=== PATIENT | female | born 1970 | race Caucasian/White ===

== ENCOUNTER 2016-04-07 10:18 | Emergency (ER) | payer OTHER, MEDICARE ==
[~2016-04-07] VITALS: Ht 157.5 cm; Wt 63.5 kg
[~2016-04-07 10:18] MED LIST: ALBUTEROL SULFAT3 M3 IT; ATORVASTATIN CA40 MG PO; AUGMENTIN 875 M1 TAB PO; AUGMENTIN 875-1 EACH PO; CIPRO 500MG (E500 MG PO; CLOPIDOGREL75 MG PO; ENSURE PLUS; ENSURE PLUS 23237 ML PEG; ERYTHROMYCIN 2250 MG PO; FUROSEMIDE20 MG PO; LEADER ASPIRIN81 MG PO; LEVAQUIN 500MG500 MG PO; LEVAQUIN750 MG PEG; MAALOX PLUS30 ML PO; MASON NATURAL2000 IU PO; METOCLOPRAMIDE10 MG IT; NITROSTAT0.4 MG SL; ONDANSETRON HYDR4 MG PO; PANTOPRAZOLE SO40 MG PO; POLYETHYLE17 GM/Dos2 PEG; POLYTRIM EYE DR10 ML OPH; PREDNISONE20 M1 PO; PROBIOTIC & ACI1 CAP PO; SYMBICORT 160/41 PUF INH; TRIAMCINOL0.1 %/453 TOP; VITAB121000 PO; VITAMIN B COMPL1 CAP PO; VITAMIN B-150 MG PO; ZITHROMAX Z-PA250 M1 PO
--- NOTE | 2016-04-07 10:22 | ED DYSPNEA/ASTHMA COMPLAINT ---
History of Present Illness General Chief Complaint: Dyspnea (COPD, CHF, Other) Stated Complaint: BIBA DIFF BREATHING Source: patient, family, old records Exam Limitations: clinical condition Vital Signs & Intake/Output Vital Signs & Intake/Output Vital Signs Date Time Temp Pulse Resp B/P Pulse O2 O2 Flow FiO2 Ox Delivery Rate 04/07 1237 97.7 55 20 121/55 98 04/07 1057 96 Trach Mask 30% 04/07 1040 97 Trach Mask 30% 04/07 1031 98.1 60 24 114/61 93 Trach Mask 4.0L Allergies Coded Allergies: NO KNOWN ALLERGIES (11/23/15) Reconcile Medications Albuterol Sulfate 0.63 MG/3 ML VIAL.NEB 1 INH IT TID ASTHMA (Reported) Aspirin 81 MG TAB.CHEW 1 TAB PO DAILY HEART HEALTH (Reported) Atorvastatin Calcium (Lipitor) 40 MG TABLET 1 TAB PO DAILY CHOLESTEROL ( Reported) Budesonide/Formoterol Fumara (Symbicort 160-4.5 Mcg Inhaler) 160 MCG/4.5 MCG PUF 2 PUF INH BID SOB (Reported) CHOLECALCIFEROL (VITAMIN D3) (Vitamin D) 2,000 UNIT CAPSULE 1 CAP PO DAILY 0700 (Reported) CLOPIDOGREL BISULFATE (Clopidogrel) 75 MG TABLET 1 TAB PO DAILY HEART HEALTH (Reported) Cyanocobalamin (Vitamin B-12) 1,000 MCG TAB 1 TAB PO DAILY V (Reported) LACTOSE-REDUCED FOOD (Ensure Plus 237 Ml) 237 ML LIQ 300 ML PEG 4 TIMES/DAY SUPPLEMENT (Reported) METOCLOPRAMIDE HCL (Metoclopramide HCl) 10 MG TABLET 1 TAB IT AC NAUSEA ( Reported) ONDANSETRON HCL (Ondansetron Hydrochloride) 4 MG TABLET 1 TAB PO Q8 PRN NAUSEA /VOMITING (Reported) Pantoprazole Sodium 40 MG TABLET.DR 1 TAB PO DAILY GERD (Reported) Polyethylene Glycol 3350 17 GRAM/DOSE POWDER 1 PAC PEG DAILY CONSTIPATION ( Reported) Please hold for diarrhea. Thiamine (Vitamin B-1) 50 MG TAB 2 TAB PO DAILY SUPPLEMENT (Reported) Vitamin B Complex 1 EACH CAPSULE 1 TAB PO DAILY SUPPLEMENT (Reported) Triage Nurses Notes Reviewed? yes Onset: Abrupt Duration: minute(s): (30) Timing: single episode today Severity: severe Activities at Onset: none Associated Symptoms: unable to breathe HPI: This is a 46 year old female with history of trach who presents from home for chief complaint of difficulty breathing prior to arrival. Her ex tried to suction her but states that when she wasn't getting better he panicked and called 911 to take her to the hospital. Symtpoms are improved at this time. No recent illness, symptoms were abrupt this morning. He reports EMS also suctioned her with good effect. Currently she is without complaints. Past History Travel History Traveled to [place] past 21 day No Medical History Any Pertinent Medical History? 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 Hx Contributory? No Review of Systems Review of Systems Constitutional: Denies: chills, fever. EENTM: Reports: no symptoms. Respiratory: Reports: see HPI, stridor, wheezing. Cardiovascular: Denies: chest pain, palpitations. GI: Denies: abdominal pain. Genitourinary: Reports: no symptoms. Musculoskeletal: Reports: no symptoms. Skin: Reports: no symptoms. Neurological/Psychological: Reports: no symptoms. Hematologic/Endocrine: Denies: bruising, bleeding, polyuria, polydipsia. Immunologic/Allergic: Denies: splenectomy. All Other Systems: Reviewed and Negative Physical Exam Physical Exam General Appearance: well developed/nourished, alert, awake, mild distress Head: atraumatic, normal appearance Eyes: Bilateral: normal appearance, PERRL, EOMI. Ears, Nose, Throat: hearing grossly normal Neck: TRACH IN POSITION, NO STRIDOR Respiratory: decreased breath sounds, NO WHEEZING, RHONCHI OR CRACKLES Cardiovascular: regular rate/rhythm Peripheral Pulses: 2+ radial (R), 2+ radial (L) Neurologic/Psych: no motor/sensory deficits, awake, alert Skin: intact, normal color, warm/dry Core Measures ACS in differential dx? No Severe Sepsis Present: No Septic Shock Present: No Progress Differential Diagnosis: PNEUMONIA, ASPIRATION, MUCOUS PLUGGING Plan of Care: Orders Procedure Date/time Status RT ED ORDERS 04/07 1047 Complete LOWER RESPIRATORY CULTURE 04/07 1047 Active Telemetry/Cage Maker 04/07 1024 Active TROPONIN LEVEL 04/07 1024 Complete COMPREHENSIVE METABOLIC PANEL 04/07 1024 Complete CBC WITHOUT DIFFERENTIAL 04/07 1024 Complete EKG 04/07 1024 Active Laboratory Tests 04/07/16 1208: Anion Gap 10, Estimated GFR > 60, BUN/Creatinine Ratio 28.0 H, Glucose 95, Calcium 9.7, Total Bilirubin 0.6, AST 33, ALT 28, Alkaline Phosphatase 159 H, Troponin I < 0.01, Total Protein 7.3, Albumin 3.9, Globulin 3.4, Albumin/ Globulin Ratio 1.1, CBC w Diff NO MAN DIFF REQ, RBC 3.89 L, MCV 94.9, MCH 31.3 H, RDW 14.6 H, MPV 8.8, Gran % 68.7, Lymphocytes % 20.6, Monocytes % 8.6, Eosinophils % 1.2, Basophils % 0.9, Absolute Granulocytes 4.4, Absolute Lymphocytes 1.3, Absolute Monocytes 0.6, Absolute Eosinophils 0.1, Absolute Basophils 0.1, PUBS MCHC 33.0 Microbiology 04/07 104 LOWER RESP: Respiratory Culture - ORD 04/07 1046 LOWER RESP: Gram Stain - ORD Patient much improved after suctioning and nebulizer treatment. Patient hooked up to humidified oxygen. Chest x-ray is within normal limits. White blood cell count is negative. She is cleared for discharge at this time and will follow-up with her primary care doctor. (KEYANA KING,SIGRID) Diagnostic Imaging: Viewed by Me: Radiology Read. Discussed w/RAD: Radiology Read. CXR Impression: PATIENT: BAHMAN BLOUNT PRESENT AGE: 46 PATIENT ACCOUNT NO: [id number] : 69 LOCATION: [facility] ORDERING PHYSICIAN: SIGRID RIDLEY MD SERVICE DATE: 04/07/16 EXAM TYPE: RAD - XRY -PORTABLE CHEST XRAY EXAMINATION: XR PORTABLE CHEST CLINICAL INFORMATION: Dyspnea. Evaluate for pneumonia. COMPARISON: CXR from 01/28/2016. TECHNIQUE: Chest, AP view FINDINGS: Tracheostomy tube is in satisfactory position with its tip located 2.8 cm above the toño. Lungs are markedly hypoinflated and there are persistent linear, hazy opacities in the bases, consistent with atelectasis. No acute airspace opacification, pulmonary edema or pleural effusion. Cardiac silhouette is normal in size but suboptimally evaluated due to the hypoinflation and diaphragm elevation. The visualized bones are unremarkable. IMPRESSION: Hypoinflated lungs and bibasilar atelectasis, not appreciably changed compared to 01/28/2016. There are no superimposed, acute findings to raise suspicion for pneumonia. DICTATED BY: LETY WALSH MD DATE/TIME DICTATED:04/07/161121 SHOP COORDINATOR:ROGER DATE/TIME TRANSCRIBED:04/07/161121 CONFIDENTIAL, DO NOT COPY WITHOUT APPROPRIATE AUTHORIZATION. <Electronically signed in Other Vendor System> SIGNED BY: LETY WALSH MD 04/07/161128 Initial ED EKG: none Departure Departure Time of Disposition: 1308 Disposition: HOME OR SELF CARE Condition: Stable Clinical Impression Primary Impression: Mucus plugging of bronchi Referrals: JUDI KING,FANY Allison (PCP/Family) Additional Instructions: FOLLOW UP WITH YOUR DOCTOR IN THE OFFICE. RETURN NEEDED. Departure Forms: Customer Survey General Discharge Information PA/COMMERCIAL ARTIST Co-Sign Statement Statement: ED Attending supervision documentation- [] I saw and evaluated the patient. I have also reviewed all the pertinent lab results and diagnostic results. I agree with the findings and the plan of care as documented in the PA's/COMMERCIAL ARTIST's documentation. [] I have reviewed the ED Record and agree with the PA's/COMMERCIAL ARTIST's documentation. [] Additions or exceptions (if any) to the PAs/COMMERCIAL ARTIST's note and plan are summarized below: [] Resident Co-Sign Statement Statement: ED Attending supervision documentation- [] I saw and evaluated the patient. I have also reviewed all the pertinent lab results and diagnostic results. I agree with the findings and the plan of care as documented in the Resident's documentation. [] I have reviewed the ED Record and agree with the Resident's documentation. [] Additions or exceptions (if any) to the Resident's note and plan are summarized below: [] Critical Care Note Critical Care Note Critical Care Time: non-applicable
--- NOTE | 2016-04-07 11:29 | RADIOLOGY REPORT ---
EXAMINATION: XR PORTABLE CHEST CLINICAL INFORMATION: Dyspnea. Evaluate for pneumonia. COMPARISON: CXR from 01/28/2016. TECHNIQUE: Chest, AP view FINDINGS: Tracheostomy tube is in satisfactory position with its tip located 2.8 cm above the toño. Lungs are markedly hypoinflated and there are persistent linear, hazy opacities in the bases, consistent with atelectasis. No acute airspace opacification, pulmonary edema or pleural effusion. Cardiac silhouette is normal in size but suboptimally evaluated due to the hypoinflation and diaphragm elevation. The visualized bones are unremarkable. IMPRESSION: Hypoinflated lungs and bibasilar atelectasis, not appreciably changed compared to 01/28/2016. There are no superimposed, acute findings to raise suspicion for pneumonia.
[2016-04-07 12:20] LABS: ABSOLUTE BASOPHIL COUNT 0.1 /CUMM (0.0-0.2); ABSOLUTE EOSINOPHIL COUNT 0.1 /CUMM (0.0-0.7); ABSOLUTE GRANULOCYTE CT 4.4 /CUMM (1.4-6.5); ABSOLUTE LYMPH COUNT 1.3 /CUMM (1.2-3.4); ABSOLUTE MONOCYTE COUNT 0.6 /CUMM (0.10-0.60); BASOPHIL % 0.9 % (0.0-2.0); EOSINOPHIL % 1.2 % (0-5); GRANULOCYTE % 68.7 % (42.2-75.2); HEMATOCRIT 36.9 % (37-47); MEAN CORPUSCULAR HGB 31.3 PG (27.0-31.0); MEAN CORPUSCULAR VOLUME 94.9 FL (81.0-99.0); MEAN PLATELET VOLUME 8.8 FL (7.4-10.4); PLATELET COUNT 189 /CUMM (130-400); RBC DISTRIBUTION WIDTH 14.6 % (11.5-14.5); RED BLOOD CELL CT 3.89 /CUMM (4.20-5.40); WHITE BLOOD CELL COUNT 6.4 /CUMM (4.8-10.8)
[2016-04-07 12:37] VITALS: BP 121/55
== END 2016-04-07 13:29 ==
LOC: ERH 10:18
PROVIDERS: Emergency Medicine
DX: T17.900A Unspecified foreign body in respiratory tract, part unspecified causing asphyxiation, initial encounter (principal)
CPT/HCPCS: 1263; 1342; 87070; 93005; 93010

== ENCOUNTER 2016-06-08 16:26 | Emergency (ER) | payer OTHER, MEDICARE ==
--- NOTE | 2016-06-08 18:14 | ED GENERAL ADULT ---
History of Present Illness General Chief Complaint: General Adult Stated Complaint: PEG TUBE PLACED Source: patient Exam Limitations: no limitations Vital Signs & Intake/Output Vital Signs & Intake/Output Vital Signs Date Time Temp Pulse Resp B/P Pulse O2 O2 Flow FiO2 Ox Delivery Rate 06/09 1847 Trach Mask 4.0L 06/08 184 97.6 55 16 122/59 99 Trach Mask 4.0L 06/08 1712 98.6 56 15 106/70 99 Room Air Allergies Coded Allergies: NO KNOWN ALLERGIES (11/23/15) Reconcile Medications Albuterol Sulfate 0.63 MG/3 ML VIAL.NEB 1 Vial INH/NURIS QAM RESPIRATORY ( Reported) Aspirin (Ecotrin*) 81 MG TABLET.DR 1 TAB AD DAILY HEART/BLOOD (Reported) Atorvastatin Calcium (Lipitor) 40 MG TABLET 1 TAB AD DAILY CHOLESTEROL ( Reported) Budesonide/Formoterol Fumarate (Symbicort 160-4.5 Mcg Inhaler) 160 MCG-4.5 MCG/ ACTUATION HFA.AER.AD 2 PUF INH BID RESPIRATORY (Reported) Cholecalciferol (Vitamin D3) (Vitamin D) 2,000 UNIT CAPSULE 1 CAP AD DAILY SUPPLEMENT (Reported) Clopidogrel Bisulfate (Clopidogrel) 75 MG TABLET 1 TAB AD DAILY BLOOD THINNER (Reported) Cyanocobalamin (Vitamin B-12) 1,000 MCG TABLET 1 TAB AD DAILY SUPPLEMENT ( Reported) Lactose-Reduced Food (Ensure Plus) 0.05 GRAM-1.5 KCAL/ML LIQUID 300 ML PEG 4 TIMES/DAY SUPPLEMENT (Reported) Metoclopramide HCl (Reglan) 10 MG TABLET 1 TAB PEG TIDAC GI (Reported) 30 minutes before meals and bedtime Nitroglycerin 0.4 MG TAB.SUBL 1 TAB SL AD PRN CHEST PAIN (Reported) 1st sign of attack; may repeat every 5 minutes until relief; if pain persists after 3 tablets in 15 minutes, prompt medical att Ondansetron HCl 4 MG TABLET 1 TAB PEG Q4P PRN N/V (Reported) Pantoprazole Sodium 40 MG TABLET.DR 1 TAB AD DAILY GI (Reported) Polyethylene Glycol 3350 17 GRAM POWD.PACK 1 PAC PEG DAILY GI (Reported) Polytrim (Polytrim Eye Drops) 10,000 UNIT-1 MG/ML DROPS 1 GTT OPH Q6 conjunctivitis Thiamine HCl (B-1) 100 MG TABLET 1 TAB AD DAILY SUPPLEMENT (Reported) Vitamin B Complex (Super B-50 Complex Plus) 1 EACH TABLET 1 TAB AD DAILY SUPPLEMENT (Reported) Triage Note: PT TO ED FOR DISLODGED PEG TUBE, REPORTING SHE WAS ABOUT TO GET DINNER AND NOTICED THE PEG TUBE WAS OUT. Triage Nurses Notes Reviewed? yes Onset: Abrupt Duration: day(s): (1), constant Timing: recent history Injury Environment: home Severity: mild Severity Numbers: 3 No Modifying Factors: none Associated Symptoms: denies HPI: 46-year-old female presents with her for evaluation after he states her PEG tube fell out just prior to arrival. The patient is been in her normal state of health without any complaints no fever no chills no nausea no vomiting no cough. Her states that there has been leakage around the PEG tube for the past 1 week. This tube was placed in November by Dr. Bansal. They deny noting any rashes or skin there are no modifying factors or associated symptoms otherwise (DAVID NOBLE) Past History Travel History Traveled to [place] past 21 day No Medical History Any Pertinent Medical History? 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 Hx Contributory? No (DAVID NOBLE) Review of Systems Review of Systems Constitutional: Reports: see HPI. All Other Systems: Reviewed and Negative Comments Review of systems: See HPI, All other systems negative. Constitutional, no chills no fever, no malaise HEENT: No visual changes no sore throat no congestion Cardiovascular: No chest pain , no palpitation Skin, no jaundice no rashes, no change in skin Respiratory: No dyspnea no cough no sputum GI: No nausea no vomiting, : No dysuria Muscle skeletal: No joint pain, no back pain, no neck pain, Neurologic: No numbness no headache Psych: No stress Heme/endocrine: No bruising no bleeding Immunology: No lymphadenopathy (DAVID NOBLE) Physical Exam Physical Exam General Appearance: well developed/nourished, alert, awake Comments: Well-developed well-nourished person in no acute distress HEENT: Normal EENT exam; PERRL, EOMI, . HEAD is atraumatic. moist mucous membranes. Neck: Supple,normal range of motion Back: Nontender, no CVA tenderness. Full range of motion Cardiovascular: Regular rate and rhythms no murmurs rubs Respiratory: Patient speaking in full complete sentences. Breath sounds clear to auscultation bilaterally: NO W/R/R Abdomen: Soft, nontender nondistended, no appreciable organomegaly. Normal bowel sounds. No rebound/guarding, Extremity: No edema, full range of motion of extremities Neuro: Alert oriented x3, motor sensory normal, There were no obvious focal neurologic abnormalities. Skin: No appreciable rash on exposed skin, skin is warm and dry. Psych: Mood and affect is normal, memory and judgment is normal. Core Measures ACS in differential dx? No CVA/TIA Diagnosis: No Severe Sepsis Present: No Septic Shock Present: No (DAVID NOBLE) Progress Differential Diagnoses I considered the following diagnoses in my evaluation of the patient: peg tube replacmeent Plan of Care: Case was discussed with Dr. Jackson 18 [place] temporary Hunt was placed successfully by myself, discussed the patient's need for close follow-up with Dr. Bansal, or IR tomorrow for permanent PEG. They feel comfortable with plan Initial ED EKG: none (DAVID NOBLE) Departure Departure Time of Disposition: 1834 Disposition: HOME OR SELF CARE Condition: Stable Clinical Impression Primary Impression: S/P percutaneous endoscopic gastrostomy (PEG) tube placement Referrals: FANY LAU MD (PCP/Family) LAKIA BANSAL MD Additional Instructions: Follow-up with your call center agent Dr. Bansal tomorrow. Return to emergency room anytime sooner with any concerns Departure Forms: Customer Survey General Discharge Information Prescriptions: Current Visit Scripts Polytrim (Polytrim Eye Drops) 1 GTT OPH Q6 #10 ML (DAVID NOBLE) PA/FRUIT FARMER Co-Sign Statement Statement: ED Attending supervision documentation- [] I saw and evaluated the patient. I have also reviewed all the pertinent lab results and diagnostic results. I agree with the findings and the plan of care as documented in the PA's/FRUIT FARMER's documentation. [x] I have reviewed the ED Record and agree with the PA's/FRUIT FARMER's documentation. [] Additions or exceptions (if any) to the PAs/FRUIT FARMER's note and plan are summarized below: [] (LUDWIG KING,JORDANA Flores) Critical Care Note Critical Care Note Critical Care Time: non-applicable (DAVID NOBLE)
[2016-06-08] MEDS ORDERED: POLYTRIM EYE DR10 ML OPH (18:37)
[2016-06-08 18:46] VITALS: BP 122/59
[2016-06-08] MEDS ORDERED: SYMBICORT 16010.2 GM INH (18:46)
[2016-06-08] MEDS ORDERED: ALBUTEROL0.63 MG/1 INH/SOL (18:46)
[2016-06-08] MEDS ORDERED: POLYETHYLENE GL17 GM PEG (18:47)
[2016-06-08] MEDS ORDERED: ONDANSETRON HCL4 MG PEG (18:48)
[2016-06-08] MEDS ORDERED: NITROGLYCERIN0.4 M1 SL (18:49)
[2016-06-08] MEDS ORDERED: PANTOPRAZOLE SO40 M1 AD (18:53)
[2016-06-08] MEDS ORDERED: REGLAN10 M1 PEG (18:53)
[2016-06-08] MEDS ORDERED: CLOPIDOGREL75 M1 AD (18:53)
[2016-06-08] MEDS ORDERED: ASPIRIN EC81 M1 AD (18:54)
[2016-06-08] MEDS ORDERED: LIPITOR40 M1 AD (18:54)
[2016-06-08] MEDS ORDERED: B-1100 MG AD (18:55)
[2016-06-08] MEDS ORDERED: VITAMIN B-121000 MC3 AD (18:58)
[2016-06-08] MEDS ORDERED: SUPER B-50 COM1 EAC1 AD (18:58)
[2016-06-08] MEDS ORDERED: VITAMIN D2000 UNIT AD (18:59)
[2016-06-08] MEDS ORDERED: ENSURE PLUS237 ML PEG (18:59)
== END 2016-06-08 19:01 ==
LOC: ERH 16:26
DX: Z43.1 Encounter for attention to gastrostomy (principal)

== ENCOUNTER 2016-07-18 18:40 | Emergency (ER) | payer OTHER, MEDICARE ==
[~2016-07-18 18:40] MED LIST changes: +ALBUTEROL0.63 MG/1 INH/SOL; +ASPIRIN EC81 M1 AD; +B-1100 MG AD; +CLOPIDOGREL75 M1 AD; +ENSURE PLUS237 ML PEG; +LIPITOR40 M1 AD; +NITROGLYCERIN0.4 M1 SL; +ONDANSETRON HCL4 MG PEG; +PANTOPRAZOLE SO40 M1 AD; +POLYETHYLENE GL17 GM PEG; +REGLAN10 M1 PEG; +SUPER B-50 COM1 EAC1 AD; +SYMBICORT 16010.2 GM INH; +VITAMIN B-121000 MC3 AD; +VITAMIN D2000 UNIT AD
--- NOTE | 2016-07-18 19:13 | ED DYSPNEA/ASTHMA COMPLAINT ---
History of Present Illness General Chief Complaint: General Adult Stated Complaint: REQUEST TO CHANGE TRACHEOSTOMY TUBE Source: patient, family Exam Limitations: no limitations Vital Signs & Intake/Output Vital Signs & Intake/Output Vital Signs Date Time Temp Pulse Resp B/P B/P Pulse O2 O2 Flow FiO2 Mean Ox Delivery Rate 07/18 2122 98.4 66 18 126/64 95 Trach Mask 07/18 2024 21 07/18 1934 Trach Mask 07/18 1842 98.5 52 18 125/64 93 Trach Mask 4.0L ED Intake and Output 07/19 0000 07/18 1200 Intake Total 0 Output Total Balance 0 Intake, Oral 0 Allergies Coded Allergies: NO KNOWN ALLERGIES (11/23/15) Reconcile Medications Albuterol Sulfate 0.63 MG/3 ML VIAL.NEB 1 Vial INH/NURIS QAM RESPIRATORY ( Reported) Aspirin (Ecotrin*) 81 MG TABLET.DR 1 TAB AD DAILY HEART/BLOOD (Reported) Atorvastatin Calcium (Lipitor) 40 MG TABLET 1 TAB AD DAILY CHOLESTEROL ( Reported) Budesonide/Formoterol Fumarate (Symbicort 160-4.5 Mcg Inhaler) 160 MCG-4.5 MCG/ ACTUATION HFA.AER.AD 2 PUF INH BID RESPIRATORY (Reported) Cholecalciferol (Vitamin D3) (Vitamin D) 2,000 UNIT CAPSULE 1 CAP AD DAILY SUPPLEMENT (Reported) Clopidogrel Bisulfate (Clopidogrel) 75 MG TABLET 1 TAB AD DAILY BLOOD THINNER (Reported) Cyanocobalamin (Vitamin B-12) 1,000 MCG TABLET 1 TAB AD DAILY SUPPLEMENT ( Reported) Lactose-Reduced Food (Ensure Plus) 0.05 GRAM-1.5 KCAL/ML LIQUID 300 ML PEG 4 TIMES/DAY SUPPLEMENT (Reported) Metoclopramide HCl (Reglan) 10 MG TABLET 1 TAB PEG TIDAC GI (Reported) 30 minutes before meals and bedtime Nitroglycerin 0.4 MG TAB.SUBL 1 TAB SL AD PRN CHEST PAIN (Reported) 1st sign of attack; may repeat every 5 minutes until relief; if pain persists after 3 tablets in 15 minutes, prompt medical att Ondansetron HCl 4 MG TABLET 1 TAB PEG Q4P PRN N/V (Reported) Pantoprazole Sodium 40 MG TABLET.DR 1 TAB AD DAILY GI (Reported) Polyethylene Glycol 3350 17 GRAM POWD.PACK 1 PAC PEG DAILY GI (Reported) Polytrim (Polytrim Eye Drops) 10,000 UNIT-1 MG/ML DROPS 1 GTT OPH Q6 conjunctivitis Polytrim (Polytrim Eye Drops) 10,000 UNIT-1 MG/ML DROPS 1 GTT OPH Q6 conjunctivitis Thiamine HCl (B-1) 100 MG TABLET 1 TAB AD DAILY SUPPLEMENT (Reported) Vitamin B Complex (Super B-50 Complex Plus) 1 EACH TABLET 1 TAB AD DAILY SUPPLEMENT (Reported) Triage Note: TRIAGE; PT TO ED REQUESTING TRACH CHANGE. STATES BALLOON POPPED AND IS UNABLE TO SUPPORT THE VENTILATOR COBOL PROGRAMMER. IS ON 4L 02 VIA VENT MASK CURRENTLY. SAT 93% AT THIS TIME. ALSO C/O RT EYE ?INFECTION. Triage Nurses Notes Reviewed? yes Onset: Abrupt Duration: minute(s): (few) Timing: single episode today Severity: mild, severe Activities at Onset: none HPI: 46-year-old female with history of long standing trait presents with her ex- to the ER for chief complaint of inability to put on the ventilator this evening. He states he was trying to insufflate the balloon and the air wouldn't home. Last used that last night. She is vent dependent overnight for 12 hours at a time. Past History Travel History Traveled to [place] past 21 day No Medical History Any Pertinent Medical History? 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 Hx Contributory? No Review of Systems Review of Systems Constitutional: Denies: chills, fever. EENTM: Reports: no symptoms. Respiratory: Reports: see HPI. Denies: hemoptysis, short of breath, sputum production. Cardiovascular: Denies: chest pain. GI: Denies: abdominal pain. Genitourinary: Reports: no symptoms. Musculoskeletal: Reports: no symptoms. Skin: Reports: no symptoms. Neurological/Psychological: Reports: no symptoms. Hematologic/Endocrine: Denies: bruising, bleeding, polyuria, polydipsia. Immunologic/Allergic: Denies: splenectomy. All Other Systems: Reviewed and Negative Physical Exam Physical Exam General Appearance: well developed/nourished, alert, awake, mild distress Head: atraumatic, normal appearance Eyes: Bilateral: PERRL. Neck: TRACHEOSTOMY TUBE IN PLACE Respiratory: UPPER AIRWAY TRANSMITTED SOUNDS Cardiovascular: regular rate/rhythm Peripheral Pulses: 2+ radial (R), 2+ radial (L) Gastrointestinal: normal bowel sounds, soft, non-tender Neurologic/Psych: awake, alert, oriented x 3 Skin: intact, normal color, warm/dry Core Measures ACS in differential dx? No Severe Sepsis Present: No Septic Shock Present: No Progress Differential Diagnosis: DEFLATED TRACHEOSTOMY CUFF, INABILITY TO VENTILATE OVERNIGHT Plan of Care: Orders Procedure Date/time Status VENTILATOR PARAMETERS 07/18 1944 Complete 6.0 trach changed after consultation with Dr. Richey. I was able to inflate the new cuff. We hooked her to the ventilator to make sure she was getting good tidal volumes. She'll be able to be discharged for follow-up with Dr. Carpenter. (KEYANA KING,[facility]) Initial ED EKG: none Departure Departure Time of Disposition: 2053 Disposition: HOME OR SELF CARE Condition: Stable Clinical Impression Primary Impression: Encounter for tracheostomy tube change Secondary Impressions: Conjunctivitis Referrals: DARNELL KING,SARINA LAU MD,FANY Allison (PCP/Family) Additional Instructions: Follow up with Dr. Carpenter in the office. Use the eyedrops as directed. Please return for any problems with the trach. Departure Forms: Customer Survey General Discharge Information Prescriptions: Current Visit Scripts Polytrim (Polytrim Eye Drops) 1 GTT OPH Q6 #10 ML Critical Care Note Critical Care Note Critical Care Time: non-applicable
[2016-07-18] MEDS ORDERED: POLYTRIM EYE DR10 ML OPH (20:55)
[2016-07-18 21:23] VITALS: BP 126/64
== END 2016-07-18 21:24 ==
LOC: ERH 18:40
DX: Z43.0 Encounter for attention to tracheostomy (principal); H10.9 Unspecified conjunctivitis
CPT/HCPCS: 1342

== ENCOUNTER 2016-10-01 12:10 | Observation (INO) | payer OTHER, MEDICARE ==
[~2016-10-01] VITALS: Ht 167.6 cm; Wt 85.7 kg
[~2016-10-01 12:10] MED LIST changes: +AMOXICILLIN875 M1 PO; -ASPIRIN EC81 M1 AD; +ASPIRIN EC81 M1 PEG; -B-1100 MG AD; +B-1100 MG PEG; -CLOPIDOGREL75 M1 AD; +CLOPIDOGREL75 M1 PEG; -LIPITOR40 M1 AD; +LIPITOR40 M1 PEG; -PANTOPRAZOLE SO40 M1 AD; +PANTOPRAZOLE SO40 M1 PEG; -SUPER B-50 COM1 EAC1 AD; +SUPER B-50 COM1 EAC1 PEG; -VITAMIN B-121000 MC3 AD; +VITAMIN B-121000 MC3 PEG; -VITAMIN D2000 UNIT AD; +VITAMIN D2000 UNIT PEG
--- NOTE | 2016-10-01 12:15 | ED DYSPNEA/ASTHMA COMPLAINT ---
History of Present Illness General Chief Complaint: General Adult Stated Complaint: BIBA FOR ?AIRWAY OBSTRUCTION Source: patient, family, old records, EMS Exam Limitations: clinical condition, physical impairment Vital Signs & Intake/Output Vital Signs & Intake/Output Vital Signs Date Time Temp Pulse Resp B/P B/P Pulse O2 O2 Flow FiO2 Mean Ox Delivery Rate 10/01 1651 94 Trach Mask 4.0L 10/01 1541 97.5 73 18 125/62 96 Room Air 10/01 1230 96 Trach Mask 4.0L 10/01 1215 99.2 90 22 136/69 92 Trach Mask Allergies Coded Allergies: No Known Allergies (09/28/16) Reconcile Medications Albuterol Sulfate 0.63 MG/3 ML VIAL.NEB 1 Vial INH/NURIS QAM RESPIRATORY ( Reported) Amoxicillin 875 MG TABLET 1 TAB PO BID pharyngitis Aspirin (Ecotrin*) 81 MG TABLET.DR 1 TAB PEG DAILY HEART/BLOOD (Reported) Atorvastatin Calcium (Lipitor) 40 MG TABLET 1 TAB PEG DAILY CHOLESTEROL ( Reported) Budesonide/Formoterol Fumarate (Symbicort 160-4.5 Mcg Inhaler) 160 MCG-4.5 MCG/ ACTUATION HFA.AER.AD 2 PUF INH BID RESPIRATORY (Reported) Cholecalciferol (Vitamin D3) (Vitamin D) 2,000 UNIT CAPSULE 1 CAP PEG DAILY SUPPLEMENT (Reported) Clopidogrel Bisulfate (Clopidogrel) 75 MG TABLET 1 TAB PEG DAILY BLOOD THINNER (Reported) Cyanocobalamin (Vitamin B-12) 1,000 MCG TABLET 1 TAB PEG DAILY SUPPLEMENT ( Reported) Lactose-Reduced Food (Ensure Plus) 0.05 GRAM-1.5 KCAL/ML LIQUID 300 ML PEG 4 TIMES/DAY SUPPLEMENT (Reported) Metoclopramide HCl (Reglan) 10 MG TABLET 1 TAB PEG TIDAC GI (Reported) 30 minutes before meals and bedtime Ondansetron HCl 4 MG TABLET 1 TAB PEG Q4P PRN N/V (Reported) Pantoprazole Sodium 40 MG TABLET.DR 1 TAB PEG DAILY GI (Reported) Polyethylene Glycol 3350 17 GRAM POWD.PACK 1 PAC PEG DAILY GI (Reported) Thiamine HCl (B-1) 100 MG TABLET 1 TAB PEG DAILY SUPPLEMENT (Reported) Vitamin B Complex (Super B-50 Complex Plus) 1 EACH TABLET 1 TAB PEG DAILY SUPPLEMENT (Reported) Triage Nurses Notes Reviewed? yes Onset: Abrupt Duration: day(s): Timing: recent history Severity: severe HPI: 46-year-old female brought in by ambulance after having a difficulty breathing episode at home with an episode of vomiting. She has a tracheostomy in place. Her ex- take care of her at home. He reports that she was having severe difficulty breathing. He did some deep suctioning and put her on the ventilator at home but she did not seem to be improving. She had an episode of vomiting. She has not been feeling well for the last couple days. She has a history of pneumonia. She was seen here a few days ago for pharyngitis of the throat. She was placed on amoxicillin. Denies any other associated symptoms. Past History Travel History Traveled to [place] past 21 day No Medical History Any Pertinent Medical History? 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 Hx Contributory? No Review of Systems Review of Systems Constitutional: Reports: see HPI. EENTM: Reports: see HPI. Respiratory: Reports: see HPI. Cardiovascular: Reports: no symptoms. GI: Reports: no symptoms. Genitourinary: Reports: no symptoms. Musculoskeletal: Reports: no symptoms. Skin: Reports: no symptoms. Neurological/Psychological: Reports: no symptoms. Hematologic/Endocrine: Reports: no symptoms. Immunologic/Allergic: Reports: no symptoms. All Other Systems: Reviewed and Negative Physical Exam Physical Exam General Appearance: well developed/nourished, alert, awake Head: atraumatic Eyes: Bilateral: normal appearance. Ears, Nose, Throat: normal pharynx, hearing grossly normal Neck: tracheostomy in place Respiratory: decreased breath sounds, respiratory distress (mild) Cardiovascular: regular rate/rhythm Gastrointestinal: soft Extremities: normal inspection, normal range of motion Neurologic/Psych: awake, alert, oriented x 3, normal gait, normal mood/affect Skin: intact, normal color Core Measures ACS in differential dx? Yes Severe Sepsis Present: No Septic Shock Present: No Progress Differential Diagnosis: asthma, AMI, bronchitis, costochondritis, CHF, COPD, musculoskeletal pain, pericarditis, pulmonary embolism, pneumonia, pneumothorax, rib fracture, unstable angina Plan of Care: Orders Procedure Date/time Status LOWER RESPIRATORY CULTURE 10/[address] in observation 10/01 170 Active BLOOD CULTURE 10/01 1214 Active URINALYSIS 10/01 1214 Complete TROPONIN LEVEL 10/01 1214 Complete LACTIC ACID 10/01 1214 Complete COMPREHENSIVE METABOLIC PANEL 10/01 1214 Complete CBC WITHOUT DIFFERENTIAL 10/01 1214 Complete EKG 10/01 1214 Active Laboratory Tests 10/01/16 1515: Lactic Acid Cancelled 10/01/16 1328: Urine Color YEL, Urine Clarity HAZY H, Urine pH 6.0, Ur Specific [place] 1.010, Urine Protein NEG, Urine Ketones NEG, Urine Nitrite NEG, Urine Bilirubin NEG, Urine Urobilinogen 0.2, Ur Leukocyte Esterase LARGE H, Ur Microscopic SEDIMENT EXAMINED, Urine WBC 1-3 H, Ur Epithelial Cells FEW, Urine Bacteria MANY H, Urine Hemoglobin TRACE-INTACT, Urine Glucose NEG 10/01/16 1241: Anion Gap 11, Estimated GFR > 60, BUN/Creatinine Ratio 28.0 H, Glucose 103 H, Lactic Acid 1.2, Calcium 9.6, Total Bilirubin 0.7, AST 68 H, ALT 58 H, Alkaline Phosphatase 221 H, Troponin I < 0.01, Total Protein 6.8, Albumin 3.7, Globulin 3.1, Albumin/Globulin Ratio 1.2, CBC w Diff NO MAN DIFF REQ, RBC 3.70 L, MCV 95.0, MCH 31.6 H, RDW 13.7, MPV 9.5, Gran % 74.3, Lymphocytes % 11.9 L, Monocytes % 13.3 H, Eosinophils % 0, Basophils % 0.5, Absolute Granulocytes 5.7 , Absolute Lymphocytes 0.9 L, Absolute Monocytes 1.0 H, Absolute Eosinophils 0 , Absolute Basophils 0, PUBS MCHC 33.3 Microbiology 10/01 1325 BLOOD: Blood Culture - RECD 10/01 124 BLOOD: Blood Culture - RECD Diagnostic Imaging: Viewed by Me: Radiology Read, CT Scan. Discussed w/RAD: Radiology Read, CT Scan. Radiology Impression: PATIENT: BAHMAN BLOUNT PRESENT AGE: 46 PATIENT ACCOUNT NO: [id number] : 69 LOCATION: [facility] ORDERING PHYSICIAN: VICKY KITCHEN SERVICE DATE: 10/01/16-5 EXAM TYPE : RAD - XRY-PORTABLE CHEST XRAY EXAMINATION: XR PORTABLE CHEST CLINICAL INFORMATION: Cough. Diminished breath sounds at the base of the lungs. COMPARISON: Chest radiograph 04/07/2016. TECHNIQUE: Portable frontal view of the chest was obtained. FINDINGS: Lung volumes are low and there is hilar vascular crowding. There are reticular markings at lung bases that most likely represent a manifestation of subsegmental atelectasis. Findings have remained essentially unchanged when compared to the previous examination from 04/07/2016. There is no overt consolidative disease. No pneumothorax. The cardiac silhouette and upper mediastinal contours are unremarkable. No acute osseous finding. IMPRESSION: Low lung volumes with hilar vascular crowding. Reticular markings within the lung bases most likely represent a manifestation of subsegmental atelectasis. No overt consolidative disease. Findings remain essentially unchanged when compared to 04/07/2016 examination. DICTATED BY: CHAS RAZO MD DATE/TIME DICTATED :10/01/161255 MANAGER DEMAND:ROGER DATE/TIME TRANSCRIBED:10/01/161255 CONFIDENTIAL, DO NOT COPY WITHOUT APPROPRIATE AUTHORIZATION. < Electronically signed in Other Vendor System> SIGNED BY: CHAS RAZO MD 10/01/16 1301, PATIENT: BAHMAN BLOUNT PRESENT AGE: 46 PATIENT ACCOUNT NO: [id number] : 69 LOCATION: [facility] ORDERING PHYSICIAN: VICKY KITCHEN SERVICE DATE: 10/01/16-142 EXAM TYPE: CAT - CT ABD & PELVIS W/O IV CONTRAS EXAMINATION: CT ABDOMEN AND PELVIS WITHOUT CONTRAST CLINICAL INFORMATION: Right lower quadrant abdominal pain. COMPARISON: CT scan of abdomen and pelvis 05/06/2015. TECHNIQUE: Multidetector volumetric imaging was performed from the superior aspect of the liver through the pubic symphysis. Sagittal and coronal reformatted images were obtained on the technologist's workstation. DLP: 1641.85 mGy-cm FINDINGS: LUNG BASES: Lung volumes are low and there is bibasilar subsegmental atelectasis. No pleural or pericardial effusion. LIVER, GALLBLADDER, AND BILIARY TREE: Unenhanced liver attenuation is homogeneous and there is no discrete hepatic parenchymal mass within the liver. The gallbladder is physiologically distended with a fundal diameter of 4.4 cm. This represents no substantial change when compared to prior imaging from 05/06/2015. No overt pericholecystic inflammatory changes. PANCREAS : Unremarkable. SPLEEN: Unremarkable. ADRENAL GLANDS: Unremarkable. KIDNEYS AND URETERS: There is stable appearance of a cystic lesion near the hilum of the left kidney that may represent pelviectasis or parapelvic cysts. The right kidney is unremarkable. No abnormal perinephric inflammation or collection. There is no nephrolithiasis. No worrisome mass or calcifications visualized along the expected course of the right or left ureter. BLADDER: Unremarkable. GASTROINTESTINAL TRACT: A gastrostomy tube is in place. And stomach and small bowel are unremarkable. The appendix is normal. The colon is largely decompressed. The colon is otherwise unremarkable. There is no free intraperitoneal air or fluid. No abnormal contour changes within the mesenteric or retroperitoneal fat. No abnormal perirectal or presacral inflammation. ABDOMINAL WALL: No significant hernia is appreciated. LYMPH NODES: There are no pathologically enlarged mesenteric or retroperitoneal lymph nodes. VASCULAR: Scattered calcified atheromatous plaque is visualized within the abdominal aorta. The inferior vena cava is unremarkable. PELVIC VISCERA: Unremarkable. OSSEOUS STRUCTURES: There is no acute osseous finding. No worrisome lytic or blastic osseous lesion. IMPRESSION: The diagnostic accuracy of this examination is limited due to the absence of intravenous contrast. There is no discrete finding to provide an explanation for the patient's right lower quadrant abdominal pain. There are multiple chronic findings that remain essentially unchanged when compared to the most recent CT scan of abdomen and pelvis from . For instance there are low lung volumes with bibasilar subsegmental atelectasis. There is also a stable appearance of a cystic lesion near the hilum of the left kidney that may represent pelviectasis or a parapelvic cyst. DICTATED BY: DANNI KING,CHAS Nina DATE/TIME DICTATED:10/01/161513 MANAGER DEMAND:ROGER DATE/TIME TRANSCRIBED:10/01/161513 CONFIDENTIAL, DO NOT COPY WITHOUT APPROPRIATE AUTHORIZATION. <Electronically signed in Other Vendor System> SIGNED BY: CHAS RAZO MD 10/01/16 1532 Initial ED EKG: normal intervals, normal p-waves, normal sinus rhythm, rate (81) Departure Departure Disposition: STILL A PATIENT Condition: Stable Clinical Impression Primary Impression: Aspiration into lower respiratory tract Secondary Impressions: UTI (urinary tract infection) Referrals: JUDI KING,FANY Allison (PCP/Family) Departure Forms: Customer Survey General Discharge Information Observation Note Spoke With: QASIM KING,FIGUEROA Physician Advisor Notified: RUDDY KING,TIANNA Holt Place Patient In: Non-ED OBS Care Area Rationale for Observation: My rational for observation is as follows . Patient will require repeat CBC. Repeat a chest x-ray. Dose of IV Unasyn. Airway management with respiratory. Deep suctioning. Patient would do poorly as an outpatient. Critical Care Note Critical Care Note Critical Care Time: non-applicable
--- NOTE | 2016-10-01 13:01 | RADIOLOGY REPORT ---
EXAMINATION: XR PORTABLE CHEST CLINICAL INFORMATION: Cough. Diminished breath sounds at the base of the lungs. COMPARISON: Chest radiograph 04/07/2016. TECHNIQUE: Portable frontal view of the chest was obtained. FINDINGS: Lung volumes are low and there is hilar vascular crowding. There are reticular markings at lung bases that most likely represent a manifestation of subsegmental atelectasis. Findings have remained essentially unchanged when compared to the previous examination from 04/07/2016. There is no overt consolidative disease. No pneumothorax. The cardiac silhouette and upper mediastinal contours are unremarkable. No acute osseous finding. IMPRESSION: Low lung volumes with hilar vascular crowding. Reticular markings within the lung bases most likely represent a manifestation of subsegmental atelectasis. No overt consolidative disease. Findings remain essentially unchanged when compared to 04/07/2016 examination.
[2016-10-01 13:04] LABS: ABSOLUTE BASOPHIL COUNT 0 /CUMM (0.0-0.2); ABSOLUTE EOSINOPHIL COUNT 0 /CUMM (0.0-0.7); ABSOLUTE GRANULOCYTE CT 5.7 /CUMM (1.4-6.5); ABSOLUTE LYMPH COUNT 0.9 /CUMM (1.2-3.4); BASOPHIL % 0.5 % (0.0-2.0); EOSINOPHIL % 0 % (0-5); GRANULOCYTE % 74.3 % (42.2-75.2); HEMATOCRIT 35.2 % (37-47); MEAN CORPUSCULAR HGB 31.6 PG (27.0-31.0); MEAN CORPUSCULAR HGB CONC 33.3 G/DL (33.0-37.0); MEAN PLATELET VOLUME 9.5 FL (7.4-10.4); PLATELET COUNT 163 /CUMM (130-400); RBC DISTRIBUTION WIDTH 13.7 % (11.5-14.5); WHITE BLOOD CELL COUNT 7.6 /CUMM (4.8-10.8)
--- NOTE | 2016-10-01 15:32 | CT SCAN REPORT ---
EXAMINATION: CT ABDOMEN AND PELVIS WITHOUT CONTRAST CLINICAL INFORMATION: Right lower quadrant abdominal pain. COMPARISON: CT scan of abdomen and pelvis 05/06/2015. TECHNIQUE: Multidetector volumetric imaging was performed from the superior aspect of the liver through the pubic symphysis. Sagittal and coronal reformatted images were obtained on the technologist's workstation. DLP: 1641.85 mGy-cm FINDINGS: LUNG BASES: Lung volumes are low and there is bibasilar subsegmental atelectasis. No pleural or pericardial effusion. LIVER, GALLBLADDER, AND BILIARY TREE: Unenhanced liver attenuation is homogeneous and there is no discrete hepatic parenchymal mass within the liver. The gallbladder is physiologically distended with a fundal diameter of 4.4 cm. This represents no substantial change when compared to prior imaging from 05/06/2015. No overt pericholecystic inflammatory changes. PANCREAS: Unremarkable. SPLEEN: Unremarkable. ADRENAL GLANDS: Unremarkable. KIDNEYS AND URETERS: There is stable appearance of a cystic lesion near the hilum of the left kidney that may represent pelviectasis or parapelvic cysts. The right kidney is unremarkable. No abnormal perinephric inflammation or collection. There is no nephrolithiasis. No worrisome mass or calcifications visualized along the expected course of the right or left ureter. BLADDER: Unremarkable. GASTROINTESTINAL TRACT: A gastrostomy tube is in place. And stomach and small bowel are unremarkable. The appendix is normal. The colon is largely decompressed. The colon is otherwise unremarkable. There is no free intraperitoneal air or fluid. No abnormal contour changes within the mesenteric or retroperitoneal fat. No abnormal perirectal or presacral inflammation. ABDOMINAL WALL: No significant hernia is appreciated. LYMPH NODES: There are no pathologically enlarged mesenteric or retroperitoneal lymph nodes. VASCULAR: Scattered calcified atheromatous plaque is visualized within the abdominal aorta. The inferior vena cava is unremarkable. PELVIC VISCERA: Unremarkable. OSSEOUS STRUCTURES: There is no acute osseous finding. No worrisome lytic or blastic osseous lesion. IMPRESSION: The diagnostic accuracy of this examination is limited due to the absence of intravenous contrast. There is no discrete finding to provide an explanation for the patient's right lower quadrant abdominal pain. There are multiple chronic findings that remain essentially unchanged when compared to the most recent CT scan of abdomen and pelvis from 05/06/2015. For instance there are low lung volumes with bibasilar subsegmental atelectasis. There is also a stable appearance of a cystic lesion near the hilum of the left kidney that may represent pelviectasis or a parapelvic cyst.
--- NOTE | 2016-10-01 17:44 | PN- Att Addend ---
Attending Addendum Attending Brief Note 46 y/o F with h sig for mental retardation, muscular dystrophy, and NSTEMI, legally blind from the left eye, status post tracheostomy and PEG, on tube feeds , uses nocturnal ventilatory, during the day she is on oxygen,ch resp failure, brought in by ambulance secondary to having difficulty breathing. This morning patient all of a sudden became cyanotic and hypoxic. suctioned large amount of mucus. She could not feel better after that therefore 911 was called. When ambulance came they also suctioned and large amount of mucus-looking sputum came out. Patient recently seen in the emergency room on 09/28/2016 where she was treated with amoxicillin for pharyngitis. claims and some last 4 days she is producing more sputum/mucus but it is clear. In the emergency room patient had a low-grade temp of 99 but did not have any leukocytosis. Chest x-ray showing evidence of atelectasis. CT abdomen and pelvis did not show any acute finding. Patient has a PEG tube and gets the feeding through the PEG tube. She is nothing by mouth and also gets her medications through the PEG. 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 Vital Signs Date Time Temp Pulse Resp B/P B/P Pulse O2 O2 Flow FiO2 Mean Ox Delivery Rate 10/01 1651 94 Trach Mask 4.0L 10/01 1541 97.5 73 18 125/62 96 Room Air 10/01 1230 96 Trach Mask 4.0L 10/01 1215 99.2 90 22 136/69 92 Trach Mask on exam; awake, nad. cv; s1,s2, rrr resp; decresaed bs at bases. abd; soft, nt, bs+, + PEG. ext; no edema. Laboratory Tests 10/01 10/01 1515 1328 Chemistry Lactic Acid Cancelled Urines Urine Color (YEL,AMB,STR) YEL Urine Clarity (CLEAR) HAZY H Urine pH (5.0 - 8.0) 6.0 Ur Specific [place] (1.001 - 1.035) 1.010 Urine Protein (NEG,<30 MG/DL) NEG Urine Ketones (NEG) NEG Urine Nitrite (NEG) NEG Urine Bilirubin (NEG) NEG Urine Urobilinogen (0.1 - 1.0 EU/dl) 0.2 Ur Leukocyte Esterase (NEG) LARGE H Ur Microscopic SEDIMENT EXAMINED Urine WBC (0 - 2 /HPF) 1-3 H Ur Epithelial Cells (NONE,FEW) FEW Urine Bacteria (NEG/NONE) MANY H Urine Hemoglobin (NEG) TRACE-INTACT Urine Glucose (N MG/DL) NEG 10/01 1241 Chemistry Sodium (137 - 145 mmol/L) 144 Potassium (3.5 - 5.1 mmol/L) 3.9 Chloride (98 - 107 mmol/L) 107 Carbon Dioxide (22 - 30 mmol/L) 26 Anion Gap (5 - 16) 11 BUN (7 - 17 mg/dL) 14 Creatinine (0.5 - 1.0 mg/dL) 0.5 Estimated GFR (>60 ml/min) > 60 BUN/Creatinine Ratio (7 - 25 %) 28.0 H Glucose (65 - 99 mg/dL) 103 H Lactic Acid (0.7 - 2.1 mmol/L) 1.2 Calcium (8.4 - 10.2 mg/dL) 9.6 Total Bilirubin (0.2 - 1.3 mg/dL) 0.7 AST (14 - 36 U/L) 68 H ALT (9 - 52 U/L) 58 H Alkaline Phosphatase (<127 U/L) 221 H Troponin I (< 0.11 ng/ml) < 0.01 Total Protein (6.3 - 8.2 g/dL) 6.8 Albumin (3.5 - 5.0 g/dL) 3.7 Globulin (1.9 - 4.2 gm/dL) 3.1 Albumin/Globulin Ratio (1.1 - 2.2 %) 1.2 Hematology CBC w Diff NO MAN DIFF REQ WBC (4.8 - 10.8 /CUMM) 7.6 RBC (4.20 - 5.40 /CUMM) 3.70 L Hgb (12.0 - 16.0 G/DL) 11.7 L Hct (37 - 47 %) 35.2 L MCV (81.0 - 99.0 FL) 95.0 MCH (27.0 - 31.0 PG) 31.6 H RDW (11.5 - 14.5 %) 13.7 Plt Count (130 - 400 /CUMM) 163 MPV (7.4 - 10.4 FL) 9.5 Gran % (42.2 - 75.2 %) 74.3 Lymphocytes % (20.5 - 51.1 %) 11.9 L Monocytes % (1.7 - 9.3 %) 13.3 H Eosinophils % (0 - 5 %) 0 Basophils % (0.0 - 2.0 %) 0.5 Absolute Granulocytes (1.4 - 6.5 /CUMM) 5.7 Absolute Lymphocytes (1.2 - 3.4 /CUMM) 0.9 L Absolute Monocytes (0.10 - 0.60 /CUMM) 1.0 H Absolute Eosinophils (0.0 - 0.7 /CUMM) 0 Absolute Basophils (0.0 - 0.2 /CUMM) 0 PUBS MCHC (33.0 - 37.0 G/DL) 33.3 All imaging reviewed. A/P; 46 y/o F with pmh sig for mental retardation, muscular dystrophy, and NSTEMI, legally blind from the left eye, status post tracheostomy and PEG, on tube feeds, uses nocturnal ventilatory, during the day she is on oxygen,ch resp failure will be placed on observation in ICU secondary to having worsening of her overall state and her muscular dystrophy. Patient requiring more frequent suctioning. Recently treated with antibiotics for possible pharyngitis. No clinical evidence of infection. Patient has normal white count with negative chest x-ray evidence of any pneumonia. She denies any current sore throat, no ear pain or sinus congestion. Will hold off on further antibiotics unless spikes fever or high WBC. Respiratory therapist to do suctioning more frequently. Pulmonology consult will be obtained with spike machine feeder. She will require albuterol and Mucomyst (I lonny Hilliard) through the [facility]. Please confirm and continue other home medications. Please start the patient on her tube feeds. Please obtain sputum ulcer and start the antibiotic if there is any growth. Transaminitis: Monitor,. RUQ US. DVT prophylaxis: Lovenox Full code
--- NOTE | 2016-10-01 18:33 | History & Physical ---
SAYRA KINGMARILOU 10/01/16 1833: General Information and HPI History of Present Illness: 46 year old woman with past medical history of musculodystrophy, mental retardation, tracheostomy on nocturnal ventilator, CHF, hyperlipidemia, and dysphagia s/p PEG tube brought in by ambulance for evaluation of shortness of breath with nausea and vomiting. Patient was seen in the ED on 09/28/16 for complaints of a sore throat and shortness of breath for which she was diagnosed with pharyngitis and dishcharged to home with a ten day total course of oral augmentin. Collateral information was obtained from patients whom is present during the interview. He reports that patient developed acute onset nausea with vomiting. He states that he attempted to suction the patient and aspirated large volume yellow mucous/vomitus. Patient also reportedly complained of right lower quadrant pain at home that has since resolved. She otherwise denies any headache, fever, chills, chest pain, palpitations. Allergies/Medications Allergies: Coded Allergies: No Known Allergies (09/28/16) Home Med list Albuterol Sulfate 0.63 MG/3 ML VIAL.NEB 1 Vial INH/NURIS QAM RESPIRATORY ( Reported) Aspirin (Ecotrin*) 81 MG TABLET.DR 1 TAB PEG DAILY HEART/BLOOD (Reported) Atorvastatin Calcium (Lipitor) 40 MG TABLET 1 TAB PEG DAILY CHOLESTEROL ( Reported) Budesonide/Formoterol Fumarate (Symbicort 160-4.5 Mcg Inhaler) 160 MCG-4.5 MCG/ ACTUATION HFA.AER.AD 2 PUF INH BID RESPIRATORY (Reported) Cholecalciferol (Vitamin D3) (Vitamin D) 2,000 UNIT CAPSULE 1 CAP PEG DAILY SUPPLEMENT (Reported) Cyanocobalamin (Vitamin B-12) 1,000 MCG TABLET 1 TAB PEG DAILY SUPPLEMENT ( Reported) Lactose-Reduced Food (Ensure Plus) 0.05 GRAM-1.5 KCAL/ML LIQUID 300 ML PEG 4 TIMES/DAY SUPPLEMENT (Reported) Metoclopramide HCl (Reglan) 10 MG TABLET 1 TAB PEG TIDAC GI (Reported) 30 minutes before meals and bedtime Ondansetron HCl 4 MG TABLET 1 TAB PEG Q4P PRN N/V (Reported) Pantoprazole Sodium 40 MG TABLET.DR 1 TAB PEG DAILY GI (Reported) Polyethylene Glycol 3350 17 GRAM POWD.PACK 1 PAC PEG DAILY GI (Reported) Thiamine HCl (B-1) 100 MG TABLET 1 TAB PEG DAILY SUPPLEMENT (Reported) Vitamin B Complex (Super B-50 Complex Plus) 1 EACH TABLET 1 TAB PEG DAILY SUPPLEMENT (Reported) Past History Travel History Traveled to [place] past 21 day No Medical History Neurological: NONE EENT: cataracts, LEGALLY BLIND LEFT EYE Cardiovascular: CHF, hyperlipidemia Respiratory: pneumonia, TRACH X YEARS O2 DEP AT 4L VIA TRACH Gastrointestinal: PEG TUBE ASPIRATION RISK-CAN'T SWALLOW Hepatic: NONE Renal: NONE Musculoskeletal: MUSCULAR DYSTROPHY Psychiatric: NONE Endocrine: NONE Blood Disorders: NONE Cancer(s): NONE 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 Psychosocial History Services at Home: Nursing ETOH Use: denies use Functional Ability ADLs Needs Assist: dressing, eating, toileting, bathing. Ambulation: independent (has foot drop), walker Review of Systems Review of Systems Constitutional: Reports: see HPI. Exam & Diagnostic Data Last 24 Hrs of Vital Signs/I&O Vital Signs Date Time Temp Pulse Resp B/P B/P Pulse O2 O2 Flow FiO2 Mean Ox Delivery Rate 10/01 1938 96.4 62 16 131/63 97 Room Air 10/01 1651 94 Trach Mask 4.0L 10/01 1541 97.5 73 18 125/62 96 Room Air 10/01 1230 96 Trach Mask 4.0L 10/01 1215 99.2 90 22 136/69 92 Trach Mask Intake & Output 10/01 1600 10/01 0800 10/01 0000 Intake Total Output Total 240 Balance -240 Output, Urine 240 Patient 86.183 kg Weight Weight Reported by Patient Measurement Method Physical Exam General Appearance Alert, Cooperative, No Acute Distress Skin No Rashes, No Breakdown, No Significant Lesion HEENT Atraumatic, EOMI, Mucous Membr. moist/pink Neck Supple, No JVD, Tracheostomy in place Cardiovascular Regular Rate, Normal S1, Normal S2 Lungs Clear to Auscultation, Normal Air Movement, Decrease bibasilar air flow with mild rhonchi, no crackles Abdomen Normal Bowel Sounds, Soft, No Tenderness, No Hepatospenomegaly, No Masses, PEG tube in place Neurological Cranial Nerves 3-12 NL Extremities No Clubbing, No Cyanosis, No Edema, Normal Pulses, 2+ bilateral lower extremity swelling Vascular Normal Pulses, Pulses Symmetrical Last 24 Hrs of Labs/Thong: Laboratory Tests 10/01/16 1515: Lactic Acid Cancelled 10/01/16 1328: Urine Color YEL, Urine Clarity HAZY H, Urine pH 6.0, Ur Specific [place] 1.010, Urine Protein NEG, Urine Ketones NEG, Urine Nitrite NEG, Urine Bilirubin NEG, Urine Urobilinogen 0.2, Ur Leukocyte Esterase LARGE H, Ur Microscopic SEDIMENT EXAMINED, Urine WBC 1-3 H, Ur Epithelial Cells FEW, Urine Bacteria MANY H, Urine Hemoglobin TRACE-INTACT, Urine Glucose NEG 10/01/16 1241: Anion Gap 11, Estimated GFR > 60, BUN/Creatinine Ratio 28.0 H, Glucose 103 H, Lactic Acid 1.2, Calcium 9.6, Total Bilirubin 0.7, AST 68 H, ALT 58 H, Alkaline Phosphatase 221 H, Troponin I < 0.01, Total Protein 6.8, Albumin 3.7, Globulin 3.1, Albumin/Globulin Ratio 1.2, CBC w Diff NO MAN DIFF REQ, RBC 3.70 L, MCV 95.0, MCH 31.6 H, RDW 13.7, MPV 9.5, Gran % 74.3, Lymphocytes % 11.9 L, Monocytes % 13.3 H, Eosinophils % 0, Basophils % 0.5, Absolute Granulocytes 5.7 , Absolute Lymphocytes 0.9 L, Absolute Monocytes 1.0 H, Absolute Eosinophils 0 , Absolute Basophils 0, PUBS MCHC 33.3 Microbiology 10/01 1700 LOWER RESP: Respiratory Culture - RES 10/01 1700 LOWER RESP: Gram Stain - RES 10/01 1325 BLOOD: Blood Culture - RECD 10/01 1245 BLOOD: Blood Culture - RECD Diagnostic Data EKG Results NSR HR 81 ID 204 QTc 437 CXR Results Low lung volumes Subsegmental atelectasis Assessment/Plan Assessment: 46 year old woman with multiple medical problems brought in by ambulance for evaluation of shortness of breath and new nausea with vomiting. #Pharyngitis, most likely viral #Tracheostomy, on nocturnal ventilator #History of Musculodystrophy Patient with tracheostomy recently seen in the ED on 09/28/16 and discharged to home on oral augmentin for complaints of sore throat. Patient remains afebrile without leukocytosis making any bacterial etiology of her sore throat unlikely. -ICU for nocturnal vent -Follow off antibiotics -TRC with Nebs & Mucomyst -If patient spikes temperature, start Unasyn -Continue home meds -Blood/Sputum cultures -Pulm consult in AM #Elevated liver function tests LFTs are elevated for unclear reasons. Patient was reportedly complaining of right lower quadrant abdominal pain upon initial assessment by ED staff for which a CT abdomen/pelvis was obtained that was fairly unremarkable. -RUQ US -Repeat LFTs in AM Pain Plan-Acetaminophen Diet-NPO, ensure via peg 4x daily, f/u nutrition consult DVT PPx- ALPS/Subcutaneous heparin Code Status-FULL CODE As Ranked By This Provider Problem List: 1. Pharyngitis Core Measures/Miscellaneous Acute Coronary Syndrome ACS Diagnosis: No Cerebrovascular Accident CVA/TIA Diagnosis: No Congestive Heart Failure CHF Diagnosis: No VTE (View Protocol) VTE Risk Factors: Acute medical illness, Age > 40 No Mech VTE prophylaxis d/t: No contraindications No VTE Pharm Prophylaxis d/t: No contraindications VTE Diagnosis: No VTE Type: NONE VTE Confirmed by (Test): NONE Sepsis (View Protocol) Severe Sepsis Present: No Septic Shock Septic Shock Present: No Miscellaneous Documentation Attending Case Discussed With: FIGUEROA TRIPP MD Primary Care Physician: FANY ATKINS MD Patient sees these Specialists Dr. Pauline Atkins Level of Patient Care: Critical Care (CRI) Consults Needed: Consulting Specialty: Pulmonary Disease FIGUEROA TRIPP MD 10/02/16 1046: Attending Review Statement Attending Statement Attending MD Statement: examined this patient, discuss w/resident/PA/VERIFICATION MANAGER, agreed w/resident/PA/VERIFICATION MANAGER, discussed with family, reviewed EMR data (avail), discussed with nursing, discussed with case mgmt, reviewed images, amended to note Attending Assessment/Plan: Also see my note.
--- NOTE | 2016-10-01 20:50 | ULTRASOUND REPORT ---
EXAMINATION: ABDOMINAL ULTRASOUND LIMITED CLINICAL INFORMATION: Right-sided abdominal pain. COMPARISON: Same day abdominal and pelvic CT. TECHNIQUE: Real-time imaging of the right upper quadrant abdominal viscera. FINDINGS: PANCREAS: The visualized pancreatic head and body are normal in appearance. The remainder of the pancreas is obscured from visualization by the overlying bowel gas. LIVER: The liver is of normal size and echogenicity without focal lesions nor intrahepatic biliary ductal dilation. GALLBLADDER: Normal. The gallbladder is physiologically distended without evidence of stones, sludge, polyps, wall thickening or pericholecystic fluid. COMMON BILE DUCT: Normal in caliber measuring 0.4 cm in diameter. RIGHT KIDNEY: Normal. No hydronephrosis. No renal calculi or focal parenchymal lesions. The kidney measures 8.5 cm in maximum dimension. FREE FLUID: None. IMPRESSION: Unremarkable limited right upper quadrant ultrasound.
[2016-10-01 22:21] VITALS: BP 132/90
[2016-10-02 06:51] VITALS: BP 140/50
[2016-10-02 08:35] LABS: ABSOLUTE BASOPHIL COUNT 0 /CUMM (0.0-0.2); ABSOLUTE EOSINOPHIL COUNT 0 /CUMM (0.0-0.7); ABSOLUTE GRANULOCYTE CT 4.6 /CUMM (1.4-6.5); ABSOLUTE LYMPH COUNT 1.4 /CUMM (1.2-3.4); ABSOLUTE MONOCYTE COUNT 0.9 /CUMM (0.10-0.60); BASOPHIL % 0.6 % (0.0-2.0); EOSINOPHIL % 0 % (0-5); GRANULOCYTE % 66.2 % (42.2-75.2); HEMATOCRIT 31.6 % (37-47); MEAN CORPUSCULAR HGB 31.8 PG (27.0-31.0); MEAN CORPUSCULAR HGB CONC 33.3 G/DL (33.0-37.0); MEAN CORPUSCULAR VOLUME 95.6 FL (81.0-99.0); MEAN PLATELET VOLUME 10.1 FL (7.4-10.4); PLATELET COUNT 138 /CUMM (130-400); RBC DISTRIBUTION WIDTH 13.9 % (11.5-14.5); RED BLOOD CELL CT 3.31 /CUMM (4.20-5.40); WHITE BLOOD CELL COUNT 6.9 /CUMM (4.8-10.8)
--- NOTE | 2016-10-02 14:12 | PN- Housestaff ---
BRANDEN KING,[facility] 10/02/16 1407: Subjective Follow-up For: Pharyingitis Elevated LFT's Subjective: Stable, Vitals WNL. The nurse was cleaning her up when I went to see the patient. No overnight events reported. Review of Systems Constitutional: Denies: no symptoms. EENTM: Denies: no symptoms. Cardiovascular: Denies: no symptoms. Respiratory: Denies: no symptoms. Genitourinary: Denies: no symptoms. Musculoskeletal: Denies: no symptoms. Skin: Denies: no symptoms. Neurological/Psychological: Denies: no symptoms. Objective Last 24 Hrs of Vital Signs/I&O Vital Signs Date Time Temp Pulse Resp B/P B/P Pulse O2 O2 Flow FiO2 Mean Ox Delivery Rate 10/02 1027 98 Trach Mask 35% 10/02 0950 Trach Mask 35% 10/02 0800 100 Trach Mask 4.0L 10/02 0651 97.8 50 24 140/50 100 Trach Mask 10/02 0636 4 10/02 0311 4 10/02 0002 4 10/02 0000 Ventilator 10/01 2236 4 10/01 2221 98.1 61 24 132/90 90 Trach Mask 10/01 2111 96.7 52 18 109/59 97 Room Air 10/01 2000 4 10/01 1938 96.4 62 16 131/63 97 Room Air 10/01 1651 94 Trach Mask 4.0L 10/01 1541 97.5 73 18 125/62 96 Room Air Intake & Output 10/02 1600 10/02 0800 10/02 0000 Intake Total 835 400 Output Total 300 200 100 Balance 535 -200 300 Intake, IV 0 Intake, Oral 0 Intake, Tube 474 400 Feeding Intake, Tube 361 Irrigant Number 0 2 2 Bowel Movements Output, Urine 300 200 100 Patient 189 lb 190 lb Weight Physical Exam General Appearance: Alert, Cooperative, No Acute Distress Other Physical Findings: General Appearance Alert, Cooperative, No Acute Distress Skin No Rashes, No Breakdown, No Significant Lesion HEENT Atraumatic, EOMI, Mucous Membr. moist/pink Neck Supple, No JVD, Tracheostomy in place Cardiovascular Regular Rate, Normal S1, Normal S2 Lungs Clear to Auscultation, Normal Air Movement, Decrease bibasilar air flow with mild rhonchi, no crackles Abdomen Normal Bowel Sounds, Soft, No Tenderness, No Hepatospenomegaly, No Masses, PEG tube in place Neurological Cranial Nerves 3-12 NL Extremities No Clubbing, No Cyanosis, No Edema, Normal Pulses, 2+ bilateral lower extremity swelling Vascular Normal Pulses, Pulses Symmetrical Current Medications: Current Medications Sig/Bulmaro Start time Last Medication Dose Route Stop Time Status Admin Acetaminophen 650 MG Q6P PRN 10/01 1845 AC PO Acetylcysteine 2 ML BID 10/01 2200 AC 10/02 INH 1020 Albuterol Sulfate 3 ML QAM 10/02 1000 DC INH Albuterol Sulfate 3 ML BID 10/02 1000 AC 10/02 INH 1019 Albuterol Sulfate 3 ML ONCE ONE 10/01 1630 DC 10/01 INH 10/01 1631 1622 Aspirin Buffered 81 MG DAILY 10/02 1000 AC 10/02 PO 1002 Atorvastatin Calcium 40 MG DAILY 10/01 1849 AC 10/02 PO 1001 Budesonide/ 2 PUF BID 10/01 2200 AC Formoterol Fumarate INH Cholecalciferol 2,000 IU DAILY 10/02 1000 AC 10/02 PO 1001 Cyanocobalamin 1,000 MCG DAILY 10/02 1000 AC 10/02 PO 1001 Heparin Sodium 5,000 UNIT Q8 10/01 2200 AC 10/02 (Porcine) SC 1316 Ipratropium [place] 2.5 ML ONCE ONE 10/01 1630 DC 10/01 INH 10/01 1631 1622 Metoclopramide HCl 0 .STK-MED ONE 10/01 1926 DC PO Metoclopramide HCl 10 MG TIDAC 10/01 1915 AC 10/02 PO 1316 Omeprazole 40 MG DAILY AC 10/02 0700 AC PO Ondansetron HCl 4 MG Q6P PRN 10/01 1900 AC PO Patient Medication 1 ED .STK-MED ONE 10/02 1428 [facility] Teaching [facility] 10/02 1429 Polyethylene Glycol 17 GM DAILY 10/02 1000 AC PO Thiamine HCl 100 MG DAILY 10/02 1000 AC 10/02 PO 1001 Last 24 Hrs of Lab/Thong Results Last 24 Hrs of Labs/Mics: Laboratory Tests 10/02/16 0618: Anion Gap 8, Estimated GFR > 60, BUN/Creatinine Ratio 28.0 H, Total Bilirubin 0.7, Direct Bilirubin 0.3, AST 46 H, ALT 49, Alkaline Phosphatase 209 H, Total Protein 5.9 L, Albumin 3.2 L, CBC w Diff NO MAN DIFF REQ, RBC 3.31 L, MCV 95.6, MCH 31.8 H, RDW 13.9, MPV 10.1, Gran % 66.2, Lymphocytes % 20.3 L, Monocytes % 12.9 H, Eosinophils % 0, Basophils % 0.6, Absolute Granulocytes 4.6 , Absolute Lymphocytes 1.4, Absolute Monocytes 0.9 H, Absolute Eosinophils 0, Absolute Basophils 0, PUBS MCHC 33.3 10/01/16 1515: Lactic Acid Cancelled Microbiology 10/01 1700 LOWER RESP: Respiratory Culture - RES GRAM NEGATIVE RODS 10/01 1700 LOWER RESP: Gram Stain - RES Assessment/Plan Assessment: 46 year old woman with multiple medical problems brought in by ambulance for evaluation of shortness of breath and new nausea with vomiting. #Pharyngitis, most likely viral #Tracheostomy, on nocturnal ventilator #History of Musculodystrophy Patient with tracheostomy recently seen in the ED on 09/28/16 and discharged to home on oral augmentin for complaints of sore throat. Patient remains afebrile without leukocytosis making any bacterial etiology of her sore throat unlikely. -Follow off antibiotics -TRC with Nebs & Mucomyst -If patient spikes temperature, start Unasyn -Continue home meds -Blood/Sputum cultures -Pulm consult; awaiting recommendations. #Elevated liver function tests LFTs are elevated for unclear reasons. Patient was reportedly complaining of right lower quadrant abdominal pain upon initial assessment by ED staff for which a CT abdomen/pelvis was obtained that was fairly unremarkable. -RUQ US -Repeat LFTs this morning; trending down. Pain Plan-Acetaminophen Diet-NPO, ensure via peg 4x daily, f/u nutrition consult DVT PPx- ALPS/Subcutaneous heparin Code Status-FULL CODE Problem List: 1. Pharyngitis Pain Ratin Pain Location: None Pain Goal: Remain pain free Pain Plan: None Tomorrow's Labs & Rationales: BEP(Transaminitis) Consulting Request: Consulting Specialty: Pulmonary Disease MANFRED MIRANDA MD 10/02/16 1506: Attending MD Review Statement Attending Statement Attending MD Statement: examined this patient, discuss w/resident/PA/LOSS PREVENTION LEADER, agreed w/resident/PA/LOSS PREVENTION LEADER, reviewed EMR data (avail) Attending Assessment/Plan: 46F PMH musculodystrophy, mental retardation, tracheostomy on nocturnal ventilator, CHF, hyperlipidemia, and dysphagia s/p PEG tube under observation for nausea, vomiting, dyspnea, and thickened secretions. 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 Today patient has continued thick secretions which are reportedly improved from yesterday. She appears comfortable, vitals are stable. Sputum growing GNR. Afebrile, normal WBC, labs reviewed. Plan - Continue in observation - Continue to monitor off antibiotics - Frequent suctioning - NAC and nebulizer treatments - Follow cultures and start appropriate antibiotic - Continue home medications - DVT PPx - Anticipated discharge tomorrow
[2016-10-02 15:09] VITALS: BP 130/80
--- NOTE | 2016-10-02 17:50 | Patient Discharge Instructions ---
Discharge Instructions General Discharge Information You were seen/treated for: Pharyngitis Transaminitis Aspiration Pneumonia Special Instructions: please take all medications as directed. Please follow up with Dr. Hilliard after discharge. Diet Continue normal diet: No (Patient is on tube feeds) Activity Activity Self Limited: Yes Acute Coronary Syndrome Inclusion Criteria At DC or during hospital stay patient has or had the following: ACS DIAGNOSIS No Discharge Core Measures Meds if any: Prescribed or Continued at Discharge Meds if any: NOT Prescribed or Continued at Discharge Congestive Heart Failure Inclusion Criteria At DC or during hospital stay patient has or had the following: CHF DIAGNOSIS No Discharge Core Measures Meds if any: Prescribed or Continued at Discharge Meds if any: NOT Prescribed or Continued at Discharge Cerebrovascular accident Inclusion Criteria At DC or during hospital stay patient has or had the following: CVA/TIA Diagnosis No Discharge Core Measures Meds if any: Prescribed or Continued at Discharge Meds if any: NOT Prescribed or Continued at Discharge Venous thromboembolism Inclusion Criteria VTE Diagnosis No VTE Type NONE VTE Confirmed by (Test) NONE Discharge Core Measures - Per Current guidelines, there needs to be overlap - treatment for the first 5 days of Warfarin therapy. - If discharged on Warfarin prior to 5 days of - overlap therapy, the patient will need to be - assessed for post discharge needs including - *Post discharge parental anticoagulation - *Warfarin and/or parental anticoagulation education - *Follow up date to check INR post discharge At least 5 days overlap therapy as Inpatient No Meds if any: Prescribed or Continued at Discharge Note: Overlap Therapy is Warfarin and Anticoagulant Meds if any: NOT Prescribed or Continued at Discharge
--- NOTE | 2016-10-02 18:29 | Cons- Pulmonary ---
General Information and HPI Consulting Request Date of Consult: 10/02/16 Requested By: MEd team History of Present Illness: 46 year old woman with past medical history of musculodystrophy, mental retardation, tracheostomy on nocturnal ventilator, CHF, hyperlipidemia, and dysphagia s/p PEG tube brought in by ambulance for evaluation of shortness of breath with nausea and vomiting. Patient was seen in the ED on 09/28/16 for complaints of a sore throat and shortness of breath for which she was diagnosed with pharyngitis and dishcharged to home with a ten day total course of oral augmentin. She otherwise denies any headache, fever, chills, chest pain, palpitations. Allergies/Medications Allergies: Coded Allergies: No Known Allergies (09/28/16) Home Med List: Albuterol Sulfate 0.63 MG/3 ML VIAL.NEB 1 Vial INH/NURIS QAM RESPIRATORY ( Reported) Aspirin (Ecotrin*) 81 MG TABLET.DR 1 TAB PEG DAILY HEART/BLOOD (Reported) Atorvastatin Calcium (Lipitor) 40 MG TABLET 1 TAB PEG DAILY CHOLESTEROL ( Reported) Budesonide/Formoterol Fumarate (Symbicort 160-4.5 Mcg Inhaler) 160 MCG-4.5 MCG/ ACTUATION HFA.AER.AD 2 PUF INH BID RESPIRATORY (Reported) Cholecalciferol (Vitamin D3) (Vitamin D) 2,000 UNIT CAPSULE 1 CAP PEG DAILY SUPPLEMENT (Reported) Cyanocobalamin (Vitamin B-12) 1,000 MCG TABLET 1 TAB PEG DAILY SUPPLEMENT ( Reported) Lactose-Reduced Food (Ensure Plus) 0.05 GRAM-1.5 KCAL/ML LIQUID 300 ML PEG 4 TIMES/DAY SUPPLEMENT (Reported) Metoclopramide HCl (Reglan) 10 MG TABLET 1 TAB PEG TIDAC GI (Reported) 30 minutes before meals and bedtime Ondansetron HCl 4 MG TABLET 1 TAB PEG Q4P PRN N/V (Reported) Pantoprazole Sodium 40 MG TABLET.DR 1 TAB PEG DAILY GI (Reported) Polyethylene Glycol 3350 17 GRAM POWD.PACK 1 PAC PEG DAILY GI (Reported) Thiamine HCl (B-1) 100 MG TABLET 1 TAB PEG DAILY SUPPLEMENT (Reported) Vitamin B Complex (Super B-50 Complex Plus) 1 EACH TABLET 1 TAB PEG DAILY SUPPLEMENT (Reported) Review of Systems Review of Systems Constitutional: Reports: see HPI. Past History Travel History Traveled to [place] past 21 day No Medical History Blood Transfusion Hx: Yes Neurological: NONE EENT: cataracts, LEGALLY BLIND LEFT EYE Cardiovascular: CHF, hyperlipidemia, HEART MURMUR Respiratory: pneumonia, TRACHEOSTOMY O2 DEP AT 4L VIA TRACH Gastrointestinal: PEG TUBE ASPIRATION RISK-CAN'T SWALLOW Hepatic: NONE Renal: NONE Musculoskeletal: MUSCULAR DYSTROPHY Psychiatric: NONE Endocrine: NONE Blood Disorders: NONE Cancer(s): NONE CERAMIC SAW TENDER/Reproductive: NONE Surgical History Surgical History: TRACHEOSTOMY Family History Relations & Conditions If Any: No Known Family History. Psychosocial History Services at Home: Nursing Smoking Status: Former Smoker ETOH Use: denies use Functional Ability ADLs Needs Assist: dressing, eating, toileting, bathing. Ambulation: independent (has foot drop), walker Exam & Diagnostic Data Last 24 Hrs of Vital Signs/I&O Vital Signs Date Time Temp Pulse Resp B/P B/P Pulse O2 O2 Flow FiO2 Mean Ox Delivery Rate 10/02 1712 Trach Mask 35% 10/02 1600 Trach Mask 4.0L 10/02 1509 97.8 60 22 130/80 93 10/02 1027 98 Trach Mask 35% 10/02 0950 Trach Mask 35% 10/02 0800 100 Trach Mask 4.0L 10/02 0651 97.8 50 24 140/50 100 Trach Mask 10/02 0636 4 10/02 0311 4 10/02 0002 4 10/02 0000 Ventilator 10/01 2236 4 10/01 2221 98.1 61 24 132/90 90 Trach Mask 10/01 2111 96.7 52 18 109/59 97 Room Air 10/01 2000 4 10/01 1938 96.4 62 16 131/63 97 Room Air Intake & Output 10/02 1600 10/02 0800 10/02 0000 Intake Total 835 400 Output Total 300 200 100 Balance 535 -200 300 Intake, IV 0 Intake, Oral 0 Intake, Tube 474 400 Feeding Intake, Tube 361 Irrigant Number 0 2 2 Bowel Movements Output, Urine 300 200 100 Patient 189 lb 190 lb Weight Last 48 Hrs of Labs/Thong: Laboratory Tests 10/02/16 0618: Anion Gap 8, Estimated GFR > 60, BUN/Creatinine Ratio 28.0 H, Total Bilirubin 0.7, Direct Bilirubin 0.3, AST 46 H, ALT 49, Alkaline Phosphatase 209 H, Total Protein 5.9 L, Albumin 3.2 L, CBC w Diff NO MAN DIFF REQ, RBC 3.31 L, MCV 95.6, MCH 31.8 H, RDW 13.9, MPV 10.1, Gran % 66.2, Lymphocytes % 20.3 L, Monocytes % 12.9 H, Eosinophils % 0, Basophils % 0.6, Absolute Granulocytes 4.6 , Absolute Lymphocytes 1.4, Absolute Monocytes 0.9 H, Absolute Eosinophils 0, Absolute Basophils 0, PUBS MCHC 33.3 10/01/16 1515: Lactic Acid Cancelled 10/01/16 1328: Urine Color YEL, Urine Clarity HAZY H, Urine pH 6.0, Ur Specific [place] 1.010, Urine Protein NEG, Urine Ketones NEG, Urine Nitrite NEG, Urine Bilirubin NEG, Urine Urobilinogen 0.2, Ur Leukocyte Esterase LARGE H, Ur Microscopic SEDIMENT EXAMINED, Urine WBC 1-3 H, Ur Epithelial Cells FEW, Urine Bacteria MANY H, Urine Hemoglobin TRACE-INTACT, Urine Glucose NEG 10/01/16 1241: Anion Gap 11, Estimated GFR > 60, BUN/Creatinine Ratio 28.0 H, Glucose 103 H, Lactic Acid 1.2, Calcium 9.6, Total Bilirubin 0.7, AST 68 H, ALT 58 H, Alkaline Phosphatase 221 H, Troponin I < 0.01, Total Protein 6.8, Albumin 3.7, Globulin 3.1, Albumin/Globulin Ratio 1.2, CBC w Diff NO MAN DIFF REQ, RBC 3.70 L, MCV 95.0, MCH 31.6 H, RDW 13.7, MPV 9.5, Gran % 74.3, Lymphocytes % 11.9 L, Monocytes % 13.3 H, Eosinophils % 0, Basophils % 0.5, Absolute Granulocytes 5.7 , Absolute Lymphocytes 0.9 L, Absolute Monocytes 1.0 H, Absolute Eosinophils 0 , Absolute Basophils 0, PUBS MCHC 33.3 CXR IMPRESSION: Low lung volumes with hilar vascular crowding. Reticular markings within the lung bases most likely represent a manifestation of subsegmental atelectasis. No overt consolidative disease. Findings remain essentially unchanged when compared to 04/07/2016 examination. Assessment/Plan Impression/Plan: Physical Exam General Appearance Alert, Cooperative, No Acute Distress Skin No Rashes, No Breakdown, No Significant Lesion HEENT Atraumatic, EOMI, Mucous Membr. moist/pink Neck Supple, No JVD, Tracheostomy in place Cardiovascular Regular Rate, Normal S1, Normal S2 Lungs Clear to Auscultation, Normal Air Movement, Decrease bibasilar air flow with mild rhonchi, no crackles Abdomen Normal Bowel Sounds, Soft, No Tenderness, No Hepatospenomegaly, No Masses, PEG tube in place Neurological Cranial Nerves 3-12 NL Extremities No Clubbing, No Cyanosis, No Edema, Normal Pulses, 2+ bilateral lower extremity swelling Vascular Normal Pulses, Pulses Symmetrical IMPRESSION PT with chronic resp failure on nocturnal vent with chronic trach due to muscular dystrophy with paralysed hemidiaphragm with mild MR now with Tracheobronchitis due to pseudomonas REcent vomiting now resolved Chronic lung disease Pt on peg tube feeding with vomiting upon admission with dry abd ct nil acute Altered lfts appears chronic REC COnt current agg pulm toilet ceftaz till pseudomonas is identified COnt peg tube feeding agg BOwel regimen will follow closely Cont nocturnal vent Consult Acknowledgment - Thank you for your consult request.
[2016-10-02 22:42] VITALS: BP 122/76
[2016-10-03 06:00] VITALS: BP 120/78
[2016-10-03 08:47] LABS: ABSOLUTE BASOPHIL COUNT 0 /CUMM (0.0-0.2); ABSOLUTE EOSINOPHIL COUNT 0 /CUMM (0.0-0.7); ABSOLUTE GRANULOCYTE CT 5.6 /CUMM (1.4-6.5); ABSOLUTE LYMPH COUNT 1.4 /CUMM (1.2-3.4); ABSOLUTE MONOCYTE COUNT 0.6 /CUMM (0.10-0.60); BASOPHIL % 0.6 % (0.0-2.0); EOSINOPHIL % 0.4 % (0-5); GRANULOCYTE % 73.5 % (42.2-75.2); HEMATOCRIT 35.9 % (37-47); MEAN CORPUSCULAR HGB 31.9 PG (27.0-31.0); MEAN CORPUSCULAR HGB CONC 33.5 G/DL (33.0-37.0); MEAN CORPUSCULAR VOLUME 95.4 FL (81.0-99.0); RBC DISTRIBUTION WIDTH 13.8 % (11.5-14.5); RED BLOOD CELL CT 3.77 /CUMM (4.20-5.40); WHITE BLOOD CELL COUNT 7.7 /CUMM (4.8-10.8)
[2016-10-03 10:20] LABS: PLATELET COUNT 145 /CUMM (130-400)
--- NOTE | 2016-10-03 10:25 | PN- Housestaff ---
See Addendum Subjective Follow-up For: Pneumonia Subjective: She is feeling okay this morning. She has not been choking that much here, but her is concerned that she will when she goes home. Her breathing is improving. Review of Systems Constitutional: Reports: no symptoms. EENTM: Reports: no symptoms. Cardiovascular: Reports: no symptoms. Respiratory: Reports: no symptoms. Gastrointestinal: Reports: no symptoms. Genitourinary: Reports: no symptoms. Musculoskeletal: Reports: no symptoms. Skin: Reports: no symptoms. Neurological/Psychological: Reports: no symptoms. Hematologic/Endocrine: Reports: no symptoms. Immunologic/Allergic: Reports: no symptoms. Objective Last 24 Hrs of Vital Signs/I&O Vital Signs Date Time Temp Pulse Resp B/P B/P Pulse O2 O2 Flow FiO2 Mean Ox Delivery Rate 10/03 0913 95 Trach Mask 35% 10/03 0900 4 10/03 0800 99 Trach Mask 4.0L 10/03 0600 97.8 50 18 120/78 99 Trach Mask 10/03 0556 4 10/03 0315 4 10/03 0006 4 10/03 0000 Ventilator 10/02 2242 98.1 54 18 122/76 99 Trach Mask 10/02 1712 Trach Mask 35% 10/02 1600 Trach Mask 4.0L 10/02 1509 97.8 60 22 130/80 93 Intake & Output 10/03 1600 10/03 0800 10/03 0000 Intake Total 600 Output Total 300 600 Balance -300 0 Intake, Oral 0 Intake, Tube 600 Feeding Number 1 Bowel Movements Output, Urine 300 600 Physical Exam General Appearance: Alert, Oriented X3, Cooperative, No Acute Distress Cardiovascular: Regular Rate, Normal S1, Normal S2 Lungs: heavy breath sounds bilaterally, tracheostomy on vent Abdomen: Normal Bowel Sounds, Soft Current Medications: Current Medications Sig/Bulmaro Start time Last Medication Dose Route Stop Time Status Admin Acetaminophen 650 MG Q6P PRN 10/01 1845 AC PO Acetylcysteine 2 ML BID 10/01 2200 AC 10/03 INH 0907 Albuterol Sulfate 3 ML BID 10/02 1000 AC 10/03 INH 0907 Aspirin Buffered 81 MG DAILY 10/02 1000 AC 10/03 PO 0910 Atorvastatin Calcium 40 MG DAILY 10/01 1849 AC 10/03 PO 0910 Budesonide/ 2 PUF BID 10/01 220 AC Formoterol Fumarate INH Ceftazidime 1,000 MG Q12 10/02 2200 CAN IV Ceftazidime 1,000 MG Q12 10/02 2200 DC 10/03 IV 0909 Cholecalciferol 2,000 IU DAILY 10/02 1000 AC 10/03 PO 0909 Ciprofloxacin 500 MG BID 10/03 1011 AC PO 10/07 1010 Cyanocobalamin 1,000 MCG DAILY 10/02 1000 AC 10/03 PO 0910 Heparin Sodium 5,000 UNIT Q8 10/01 2200 AC 10/03 (Porcine) SC 0700 Levofloxacin 500 MG DAILY 10/02 1645 DC PO Metoclopramide HCl 10 MG TIDAC 10/01 1915 AC 10/03 PO 0910 Omeprazole 40 MG DAILY AC 10/02 0700 AC PO Ondansetron HCl 4 MG Q6P PRN 10/01 1900 AC PO Patient Medication 1 ED .K-MED ONE 10/02 1428 [place] Teaching ED 10/02 1429 Polyethylene Glycol 17 GM DAILY PRN 10/02 1930 AC PO Polyethylene Glycol 17 GM DAILY 10/02 1000 AC PO Senna 187 MG AT BEDTIME PRN 10/02 1930 CAN PO Senna 187 MG AT BEDTIME PRN 10/02 1930 AC PO Thiamine HCl 100 MG DAILY 10/02 1000 AC 10/03 PO 0910 Last 24 Hrs of Lab/Thong Results Last 24 Hrs of Labs/Mics: Laboratory Tests 10/03/16 0740: Anion Gap 9, Estimated GFR > 60, BUN/Creatinine Ratio 35.0 H, Total Bilirubin 0.7, Direct Bilirubin 0.3, AST 58 H, ALT 53 H, Alkaline Phosphatase 237 H, Total Protein 6.5, Albumin 3.5, CBC w Diff NO MAN DIFF REQ, RBC 3.77 L, MCV 95.4, MCH 31.9 H, RDW 13.8, MPV 10.0, Gran % 73.5, Lymphocytes % 17.6 L, Monocytes % 7.9, Eosinophils % 0.4, Basophils % 0.6, Absolute Granulocytes 5.6, Absolute Lymphocytes 1.4, Absolute Monocytes 0.6, Absolute Eosinophils 0, Absolute Basophils 0, PUBS MCHC 33.5 Assessment/Plan Assessment: 46 year old woman with multiple medical problems brought in by ambulance for evaluation of shortness of breath and new nausea with vomiting. She was seen on 09/28 and discharged home on oral Augmentin but that did not work. This is likely because the pseudomonas was not sensitive to Augmentin. #Pneumonia: culture grew pseudomonas sensitive to cipro. -stop ceftazidine. Start ciprofloxacin 500 mg twice a day for 1 week -Respiratory therapy #History of Musculodystrophy, Tracheostomy, on nocturnal ventilator: Her is concerned that she will choke when she goes home. Talking to the magnetic locater, the question is how much she is choking and whether she is able to care for this at home. If not she will have to go to a [facility]. We will discuss with the family. -Continue home meds #Elevated liver function tests LFTs are elevated for unclear reasons. Abdominal ultrasound shows no acute process. Likely steatotic. -Continue to monitor Pain Plan-Acetaminophen Diet-NPO, ensure via peg 4x daily, f/u nutrition consult DVT PPx- ALPS/Subcutaneous heparin Code Status-FULL CODE Problem List: 1. PNEUMONIA 2. Muscular dystrophy 3. Tracheostomy care Pain Ratin Pain Location: no pain Pain Goal: Remain pain free Pain Plan: see a/p Tomorrow's Labs & Rationales: potential discharge today Consulting Request: Consulting Specialty: Pulmonary Disease
[2016-10-03] MEDS ORDERED: CIPRO500 M1 PO ×3 (10:36→11:58)
[2016-10-03] MEDS ORDERED: NAC600 M1 PO ×2 (11:57→11:58)
[2016-10-03] MEDS ORDERED: NYSTATIN15 G2 TOP (12:42)
--- NOTE | 2016-10-03 13:23 | PN- Pulmonary ---
Subjective HPI/Critical Care Issues: Doing well afebrile Objective Current Medications: Current Medications Sig/Bulmaro Start time Last Medication Dose Route Stop Time Status Admin Acetaminophen 650 MG Q6P PRN 10/01 1845 DCD PO Acetylcysteine 2 ML BID 10/01 2200 DCD 10/03 INH 0907 Albuterol Sulfate 3 ML BID 10/02 1000 DCD 10/03 INH 0907 Aspirin Buffered 81 MG DAILY 10/02 1000 DCD 10/03 PO 0910 Atorvastatin Calcium 40 MG DAILY 10/01 1849 DCD 10/03 PO 0910 Budesonide/ 2 PUF BID 10/01 2200 DCD Formoterol Fumarate INH Ceftazidime 1,000 MG Q12 10/02 2200 CAN IV Ceftazidime 1,000 MG Q12 10/02 2200 DC 10/03 IV 0909 Cholecalciferol 2,000 IU DAILY 10/02 1000 DCD 10/03 PO 0909 Ciprofloxacin 500 MG BID 10/03 1011 DCD 10/03 PO 10/07 1010 1209 Cyanocobalamin 1,000 MCG DAILY 10/02 1000 DCD 10/03 PO 0910 Heparin Sodium 5,000 UNIT Q8 10/01 2200 DCD 10/03 (Porcine) SC 0700 Levofloxacin 500 MG DAILY 10/02 1645 DC PO Metoclopramide HCl 10 MG TIDAC 10/01 1915 DCD 10/03 PO 1209 Omeprazole 40 MG DAILY AC 10/02 0700 DCD PO Ondansetron HCl 4 MG Q6P PRN 10/01 1900 DCD PO Patient Medication 1 ED .STK-MED ONE 10/02 1428 [place] Teaching ED 10/02 1429 Polyethylene Glycol 17 GM DAILY PRN 10/02 1930 DCD PO Polyethylene Glycol 17 GM DAILY 10/02 1000 DCD PO Senna 187 MG AT BEDTIME PRN 10/02 1930 CAN PO Senna 187 MG AT BEDTIME PRN 10/02 1930 DCD PO Thiamine HCl 100 MG DAILY 10/02 1000 DCD 10/03 PO 0910 Vital Signs & I&O Last 24 Hrs of Vitals and I&O: Vital Signs Date Time Temp Pulse Resp B/P B/P Pulse O2 O2 Flow FiO2 Mean Ox Delivery Rate 10/03 1222 Trach Mask 35% 10/03 0913 95 Trach Mask 35% 10/03 0900 4 10/03 0800 99 Trach Mask 4.0L 10/03 0600 97.8 50 18 120/78 99 Trach Mask 10/03 0556 4 10/03 0315 4 10/03 0006 4 10/03 0000 Ventilator 10/02 2242 98.1 54 18 122/76 99 Trach Mask 10/02 1712 Trach Mask 35% 10/02 1600 Trach Mask 4.0L 10/02 1509 97.8 60 22 130/80 93 Intake & Output 10/03 1600 10/03 0800 10/03 0000 Intake Total 600 Output Total 300 600 Balance -300 0 Intake, Oral 0 Intake, Tube 600 Feeding Number 1 Bowel Movements Output, Urine 300 600 Impression/Plan Impression/Plan Impression/Plan: Physical Exam General Appearance Alert, Cooperative, No Acute Distress Skin No Rashes, No Breakdown, No Significant Lesion HEENT Atraumatic, EOMI, Mucous Membr. moist/pink Neck Supple, No JVD, Tracheostomy in place Cardiovascular Regular Rate, Normal S1, Normal S2 Lungs Clear to Auscultation, Normal Air Movement, Decrease bibasilar air flow with mild rhonchi, no crackles Abdomen Normal Bowel Sounds, Soft, No Tenderness, No Hepatospenomegaly, No Masses, PEG tube in place Neurological Cranial Nerves 3-12 NL Extremities No Clubbing, No Cyanosis, No Edema, Normal Pulses, 2+ bilateral lower extremity swelling Vascular Normal Pulses, Pulses Symmetrical IMPRESSION PT with chronic resp failure on nocturnal vent with chronic trach due to muscular dystrophy with paralysed hemidiaphragm with mild MR now with Tracheobronchitis due to pseudomonas on cipro po for seven REcent vomiting now resolved Chronic lung diseasea Pt on peg tube feeding with vomiting upon admission with dry abd ct nil acute Altered lfts appears chronic REC COnt current agg pulm toilet CIpro bid COnt peg tube feeding agg BOwel regimen will follow closely Cont nocturnal vent
== END 2016-10-03 12:52 ==
LOC: ERH 12:10 → 2NA 17:00 → ERHI 17:00 → 2NA 18:50 → EDBEDREQ 20:34 → ENRESERV 20:38 → ERHI 20:38 → ENTRNSPT 21:41 → 2NA 21:52 → CMPTRNSPT 10-02 08:32 → 2NA 10-02 10:01 → ENPENDDIS 10-03 12:04 → 2NA 10-03 12:52
PROVIDERS: Internal Medicine; Internal Medicine Interventional Cardiology; Physician Assistant Medical; ADMIT Hospitalist
DX: J02.9 Acute pharyngitis, unspecified (principal); Z99.81 Dependence on supplemental oxygen; G71.0 Muscular dystrophy; F70 Mild intellectual disabilities; Z93.0 Tracheostomy status; I50.9 Heart failure, unspecified; E78.5 Hyperlipidemia, unspecified; R13.10 Dysphagia, unspecified; H54.42 Blindness, left eye, normal vision right eye; J96.10 Chronic respiratory failure, unspecified whether with hypoxia or hypercapnia; J98.6 Disorders of diaphragm; Z87.891 Personal history of nicotine dependence; I25.2 Old myocardial infarction
CPT/HCPCS: 2NASP; 74176; 81001; 82436; 87040; 87070; 93005; 93010; 96372; 96374; G0378; J0713; J1644; J3101; J3490; J7608

== ENCOUNTER 2016-10-15 16:41 | Emergency (ER) | payer OTHER, MEDICARE ==
[~2016-10-15 16:41] MED LIST changes: +CIPRO500 M1 PO; +NAC600 M1 PO; +NYSTATIN15 G2 TOP
--- NOTE | 2016-10-15 16:51 | ED CARDIAC/CP/PALPITATIONS ---
History of Present Illness General Chief Complaint: General Adult Stated Complaint: BIBA FOR CHOKING AT HOME Source: patient, EMS Exam Limitations: no limitations Vital Signs & Intake/Output Vital Signs & Intake/Output Vital Signs Date Time Temp Pulse Resp B/P B/P Pulse O2 O2 Flow FiO2 Mean Ox Delivery Rate 10/15 1957 96.7 60 16 130/60 96 Trach Mask 8L 10/15 1940 96 Trach Mask 30% 10/15 1703 2 10/15 1657 97 Ventilator 10/15 1656 97 Ventilator 2.0L 10/15 165 97.1 61 20 136/68 97 Ventilator Allergies Coded Allergies: No Known Allergies (09/28/16) Reconcile Medications Acetylcysteine (NAC) 600 MG CAPSULE 1 CAP PO BID Breathing . Albuterol Sulfate 0.63 MG/3 ML VIAL.NEB 1 Vial INH/NURIS QAM RESPIRATORY ( Reported) Aspirin (Ecotrin*) 81 MG TABLET.DR 1 TAB PEG DAILY HEART/BLOOD (Reported) Atorvastatin Calcium (Lipitor) 40 MG TABLET 1 TAB PEG DAILY CHOLESTEROL ( Reported) Azithromycin 250 MG TABLET 1 TAB PEG DAILY ANTIBIOTIC (Reported) Budesonide/Formoterol Fumarate (Symbicort 160-4.5 Mcg Inhaler) 160 MCG-4.5 MCG/ ACTUATION HFA.AER.AD 2 PUF INH BID RESPIRATORY (Reported) Cholecalciferol (Vitamin D3) (Vitamin D) 2,000 UNIT CAPSULE 1 CAP PEG DAILY SUPPLEMENT (Reported) Ciprofloxacin HCl (Cipro) 500 MG TABLET 1 TAB PO BID Pneumonia Please finish entire course of antibiotics. . Cyanocobalamin (Vitamin B-12) 1,000 MCG TABLET 1 TAB PEG DAILY SUPPLEMENT ( Reported) Lactose-Reduced Food (Ensure Plus) 0.05 GRAM-1.5 KCAL/ML LIQUID 300 ML PEG 4 TIMES/DAY SUPPLEMENT (Reported) Metoclopramide HCl (Reglan) 10 MG TABLET 1 TAB PEG TIDAC GI (Reported) 30 minutes before meals and bedtime Nystatin 100,000 UNIT/GRAM POWDER 1 MICHELLE TOP TID PRN Intertrigo Ondansetron HCl 4 MG TABLET 1 TAB PEG Q4P PRN N/V (Reported) Pantoprazole Sodium 40 MG TABLET.DR 1 TAB PEG DAILY GI (Reported) Polyethylene Glycol 3350 17 GRAM POWD.PACK 1 PAC PEG DAILY GI (Reported) Prednisone (Unknown Strength) TABLET (Unknown Dose) PEG AD STEROID TAPER ( Reported) Prednisone 10 MG TABLET 5 TAB PO ONCE BRONCHITIS 5 TABS PO X 2 DAYS 4 TABS X 2 DAYS 3 TABS PO X 2 DAYS 2 TABS po X 2 DAYS 1 TAB po X 2 DAYS Thiamine HCl (B-1) 100 MG TABLET 1 TAB PEG DAILY SUPPLEMENT (Reported) Vitamin B Complex (Super B-50 Complex Plus) 1 EACH TABLET 1 TAB PEG DAILY SUPPLEMENT (Reported) Triage Nurses Notes Reviewed? yes Onset: Abrupt Duration: day(s): (1), continues in ED Timing: single episode today Quality/Severity: moderate, aching, sharp Location: substernal Radiation: no radiation Activities at Onset: CHOKING Prior Chest Pain/Card Workup: no prior chest pain Modifying Factors: Worsens With: palpation. Nitro Today/Relief: no nitro taken today Aspirin Today: no aspirin today Associated Symptoms: shortness of breath LMP (ages 10-50): unknown : No Patient currently breastfeeds: No HPI: 46-year-old female with a past medical history of muscular dystrophy, CHF, and pneumonia presents for evaluation of an episode of choking shortness of breath and chest pain. Patient is on a ventilator at night and as needed due to muscular dystrophy. Earlier today before she was given be fed through a PEG tube she began feeling short of breath and feeling as though she was choking. She was placed on the ventilator and suctioned and felt improvement. She reports that over the past few weeks she has had multiple similar episodes. Subsequent was also associated with sharp chest pain in the center of her chest. Pain is worse with touching the area. Currently patient reports that she is not having any problems with her breathing she only has the pain in her chest. She rates the pain as a 4 out of 10. Does not radiate. She's not taken any medicine for the pain. No other associated symptoms. She does have a history of pneumonia. She reports that she has also been having various upper respiratory symptoms including congestion and cough and rhinorrhea. She is unsure if she is currently being treated with antibiotics and steroids. (JAH WHITNEY,JUAN ALBERTO) Past History Travel History Traveled to [place] past 21 day No Medical History Any Pertinent Medical History? 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 Hx Contributory? No (JAH WHITNEY,JUAN ALBERTO) Review of Systems Review of Systems Constitutional: Reports: no symptoms. EENTM: Reports: no symptoms. Respiratory: Reports: see HPI (choking), short of breath, sputum production. Cardiovascular: Reports: see HPI, chest pain. GI: Reports: no symptoms. Genitourinary: Reports: no symptoms. Musculoskeletal: Reports: no symptoms. Skin: Reports: no symptoms. Neurological/Psychological: Reports: no symptoms. Hematologic/Endocrine: Reports: no symptoms. Immunologic/Allergic: Reports: no symptoms. All Other Systems: Reviewed and Negative (JAH WHITNEY,JUAN ALBERTO) Physical Exam Physical Exam General Appearance: well developed/nourished, no apparent distress, alert, awake , comfortable Head: atraumatic, normal appearance Eyes: Bilateral: normal appearance, PERRL, EOMI. Ears, Nose, Throat: normal pharynx, normal ENT inspection, hearing grossly normal Neck: normal inspection, supple, full range of motion Respiratory: chest non-tender, no respiratory distress, rhonchi, wheezing Cardiovascular: regular rate/rhythm, normal peripheral pulses Peripheral Pulses: 2+ radial (R), 2+ radial (L) Gastrointestinal: normal bowel sounds, soft, non-tender Back: normal inspection, normal range of motion, no vertebral tenderness Extremities: normal inspection, normal capillary refill, normal range of motion, no edema Neurologic/Psych: no motor/sensory deficits, awake, alert, oriented x 3, normal gait, normal mood/affect Reflexes: 2+: knee (R), knee (L). Skin: intact, normal color, warm/dry Lymphatic: no anterior cervical rah Core Measures ACS in differential dx? No Severe Sepsis Present: No Septic Shock Present: No (JAH WHITNEY,JUAN ALBERTO) Progress Differential Diagnosis: AMI, aortic dissection, CHF/pulm edema, costochondritis, musculoskeletal pain, pericarditis, pneumonia, pneumothorax, pulmonary embolism, respiratory failure, unstable angina Plan of Care: Orders Procedure Date/time Status EKG 10/15 165 Active URINALYSIS 10/15 1648 Complete TROPONIN LEVEL 10/15 1648 Complete LACTIC ACID 10/15 1648 Complete COMPREHENSIVE METABOLIC PANEL 10/15 1648 Complete CBC WITHOUT DIFFERENTIAL 10/15 1648 Complete B-TYPE NATRIURETIC PEP (BNP) 10/15 1648 Complete Laboratory Tests 10/15/16 194: Lactic Acid Cancelled 10/15/16 1850: Urinalysis MANY H, Urine Color YEL, Urine Clarity HAZY H, Urine pH 7.5, Ur Specific [place] 1.010, Urine Protein NEG, Urine Ketones NEG, Urine Nitrite NEG, Urine Bilirubin NEG, Urine Urobilinogen 0.2, Ur Leukocyte Esterase NEG, Ur Microscopic SEDIMENT EXAMINED, Urine RBC RARE, Urine WBC RARE, Ur Epithelial Cells FEW, Urine Bacteria RARE H, Urine Mucus RARE, Urine Hemoglobin NEG, Urine Glucose NEG 10/15/16 1801: Anion Gap 8, Estimated GFR > 60, BUN/Creatinine Ratio 32.0 H, Glucose 112 H, Lactic Acid 1.3, Calcium 9.9, Total Bilirubin 0.8, AST 28, ALT 43, Alkaline Phosphatase 151 H, Troponin I < 0.01, Glg-J-Pqinjrssojr Pept 145 H, Total Protein 6.6, Albumin 3.8, Globulin 2.8, Albumin/Globulin Ratio 1.4, CBC w Diff NO MAN DIFF REQ, RBC 3.99 L, MCV 95.6, MCH 31.5 H, RDW 14.1, MPV 8.6, Gran % 89.6 H, Lymphocytes % 7.7 L, Monocytes % 2.7, Eosinophils % 0, Basophils % 0 L, Absolute Granulocytes 8.7 H, Absolute Lymphocytes 0.7 L, Absolute Monocytes 0.3, Absolute Eosinophils 0, Absolute Basophils 0, PUBS MCHC 32.9 L Microbiology 10/15 170 LOWER RESP: Respiratory Culture - CAN Cancelled: Cancelled via OE: Error 10/15 1701 LOWER RESP: Gram Stain - CAN Cancelled: Cancelled via OE: Error Patient seen and evaluated. She is currently on the ventilator. She is reporting some substernal chest pain. There is diffuse rhonchi and wheezing also stated bilaterally. Her chest wall is tender to palpation. Pain is reproducible with range of motion of the upper extremities. She'll be given a albuterol nebulizer treatment. Check EKG chest x-ray and basic blood work. We' ll follow up on results. Spoke with patient's caregiver. He reports that patient is currently on 40 mg of prednisone and Z-Luca. This was given by [facility]. Patient was seen at [facility] for the same exact situation and discharge last Wednesday. She was also seen here [facility] previously to the [facility] admission for the same thing. She has been choking more frequently likely related to mucous plugging. All of her blood work is coming back within normal limits. Chest x- ray is clear. Patient will be discharged home with an extended dose of prednisone and instructions to follow-up with her procurement specialist as soon as possible. Reviewed all results of today's visit with patient. Patient is nontoxic-appearing agrees the plan. Case discussed with Dr. Jackson he agrees the plan. (JUAN ALBERTO TYSON PA-C) Diagnostic Imaging: Viewed by Me: Radiology Read. Discussed w/RAD: Radiology Read. CXR Impression: PATIENT: BAHMAN BLOUNT PRESENT AGE: 46 PATIENT ACCOUNT NO: [id number] : 69 LOCATION: [facility], [place] ORDERING PHYSICIAN: JUAN ALBERTO TYSON PA-C SERVICE DATE: 10/15/16 EXAM TYPE: RAD - XRY- PORTABLE CHEST XRAY EXAMINATION: XR PORTABLE CHEST CLINICAL INFORMATION: Cough, shortness of breath COMPARISON: Chest x-ray 10/01/[address] abdomen pelvis 10/01. CT chest 02/18/2016 TECHNIQUE: Portable frontal view of the chest was obtained. 5:06 PM FINDINGS: Tracheostomy catheter in place. Lung volume low. Asymmetric elevation of the right diaphragm. Linear atelectasis at left lung base. No pulmonary vascular congestion. No acute infiltrate. No pleural effusion. IMPRESSION: No acute abnormality of chest. DICTATED BY: EMMA POLLARD MD DATE/TIME DICTATED:10/15/161728 [employer] DEL[employer] SYSTEM:ROGER DATE/TIME TRANSCRIBED:10/15/161728 Initial ED EKG: SINUS RHYTHM, LEFT VENTRICULAR HYPERTROPHY, CONSIDER ANTERIOR INFARCT (JUAN ALBERTO TYSON PA-C) Departure Departure Disposition: HOME OR SELF CARE Condition: Stable Clinical Impression Primary Impression: Mucus plugging of bronchi Referrals: JUDI KING,FANY Allison (PCP/Family) Additional Instructions: Continue antibiotics as directed for the full course. Take prednisone as directed for the full course. Make a follow-up appointment with your procurement specialist as soon as possible. Return to the emergency department with any concerns. Departure Forms: Customer Survey General Discharge Information Prescriptions: Current Visit Scripts Prednisone 5 TAB PO ONCE #30 TAB 5 TABS PO X 2 DAYS 4 TABS X 2 DAYS 3 TABS PO X 2 DAYS 2 TABS po X 2 DAYS 1 TAB po X 2 DAYS (JUAN ALBERTO TYSON PA-C) PA/CHIEF PROCUREMENT OFFICER Co-Sign Statement Statement: ED Attending supervision documentation- [] I saw and evaluated the patient. I have also reviewed all the pertinent lab results and diagnostic results. I agree with the findings and the plan of care as documented in the PA's/CHIEF PROCUREMENT OFFICER's documentation. [X] I have reviewed the ED Record and agree with the PA's/CHIEF PROCUREMENT OFFICER's documentation. [] Additions or exceptions (if any) to the PAs/CHIEF PROCUREMENT OFFICER's note and plan are summarized below: [] (DONNA KING,CRISTOBAL Holt) Critical Care Note Critical Care Note Critical Care Time: non-applicable (JUAN ALBERTO TYSON PA-C)
--- NOTE | 2016-10-15 17:35 | RADIOLOGY REPORT ---
EXAMINATION: XR PORTABLE CHEST CLINICAL INFORMATION: Cough, shortness of breath COMPARISON: Chest x-ray 10/01/[address] abdomen pelvis 10/01/2016. CT chest 02/18/2016 TECHNIQUE: Portable frontal view of the chest was obtained. 5:06 PM FINDINGS: Tracheostomy catheter in place. Lung volume low. Asymmetric elevation of the right diaphragm. Linear atelectasis at left lung base. No pulmonary vascular congestion. No acute infiltrate. No pleural effusion. IMPRESSION: No acute abnormality of chest.
[2016-10-15] MEDS ORDERED: AZITHROMYCIN250 M1 PEG (18:08)
[2016-10-15] MEDS ORDERED: PREDNISONE20 M1 PEG (18:10)
[2016-10-15 18:11] LABS: ABSOLUTE BASOPHIL COUNT 0 /CUMM (0.0-0.2); ABSOLUTE EOSINOPHIL COUNT 0 /CUMM (0.0-0.7); ABSOLUTE GRANULOCYTE CT 8.7 /CUMM (1.4-6.5); ABSOLUTE LYMPH COUNT 0.7 /CUMM (1.2-3.4); ABSOLUTE MONOCYTE COUNT 0.3 /CUMM (0.10-0.60); BASOPHIL % 0 % (0.0-2.0); EOSINOPHIL % 0 % (0-5); HEMATOCRIT 38.1 % (37-47); MEAN CORPUSCULAR HGB 31.5 PG (27.0-31.0); MEAN CORPUSCULAR HGB CONC 32.9 G/DL (33.0-37.0); MEAN CORPUSCULAR VOLUME 95.6 FL (81.0-99.0); MEAN PLATELET VOLUME 8.6 FL (7.4-10.4); PLATELET COUNT 208 /CUMM (130-400); RBC DISTRIBUTION WIDTH 14.1 % (11.5-14.5); RED BLOOD CELL CT 3.99 /CUMM (4.20-5.40); WHITE BLOOD CELL COUNT 9.8 /CUMM (4.8-10.8)
[2016-10-15 18:39] LABS: GRANULOCYTE % 89.6 % (42.2-75.2)
[2016-10-15 19:58] VITALS: BP 130/60
[2016-10-15] MEDS ORDERED: PREDNISONE10 M2 PO (19:59)
== END 2016-10-15 20:46 ==
LOC: ERH 16:41
PROVIDERS: Physician Assistant Medical
DX: J98.09 Other diseases of bronchus, not elsewhere classified (principal); R07.9 Chest pain, unspecified
CPT/HCPCS: 1263; 1342; 81001; 87070; 93005; 93010

== ENCOUNTER 2017-03-22 05:02 | Emergency (ER) | payer OTHER, MEDICARE ==
[~2017-03-22 05:02] MED LIST changes: +AZITHROMYCIN250 M1 PEG; +CLEOCIN HCL300 M1 PO; +CLINDAMYCI75 MG/5 M1 PO; +CLOPIDOGREL75 M1 PO; +PREDNISONE10 M2 PO; +PREDNISONE20 M1 PEG; +PREDNISONE50 M1 PO; +REGLAN10 M1 PO
--- NOTE | 2017-03-22 05:15 | ED GENERAL ADULT ---
History of Present Illness General Chief Complaint: General Adult Stated Complaint: FEEDING TUBE OUT Source: patient Exam Limitations: no limitations Vital Signs & Intake/Output Vital Signs & Intake/Output Vital Signs Date Time Temp Pulse Resp B/P B/P Pulse O2 O2 Flow FiO2 Mean Ox Delivery Rate 03/22 0532 99 Trach Mask 4.0L 03/22 527 99 Trach Mask 4.0L 03/22 522 97.6 64 18 155/82 99 Nasal 4.0L Cannula Allergies Coded Allergies: No Known Allergies (09/28/16) Reconcile Medications Albuterol Sulfate 0.63 MG/3 ML VIAL.NEB 1 Vial INH/NURIS QAM RESPIRATORY ( Reported) Amoxicillin/Potassium Clav (Augmentin 875-125 Tablet) 875 MG-125 MG TABLET 1 TAB PO BID aspiration Aspirin (Ecotrin*) 81 MG TABLET.DR 1 TAB PEG DAILY HEART/BLOOD (Reported) Atorvastatin Calcium (Lipitor) 40 MG TABLET 1 TAB PEG DAILY CHOLESTEROL ( Reported) Budesonide/Formoterol Fumarate (Symbicort 160-4.5 Mcg Inhaler) 160 MCG-4.5 MCG/ ACTUATION HFA.AER.AD 2 PUF INH BID RESPIRATORY (Reported) Cholecalciferol (Vitamin D3) (Vitamin D) 2,000 UNIT CAPSULE 1 CAP PEG DAILY SUPPLEMENT (Reported) Cyanocobalamin (Vitamin B-12) 1,000 MCG TABLET 1 TAB PEG DAILY SUPPLEMENT ( Reported) Lactose-Reduced Food (Ensure Plus) 0.05 GRAM-1.5 KCAL/ML LIQUID 300 ML PEG 4 TIMES/DAY SUPPLEMENT (Reported) Metoclopramide HCl (Reglan) 10 MG TABLET 1 TAB PEG TIDAC GI (Reported) 30 minutes before meals and bedtime Pantoprazole Sodium 40 MG TABLET. 1 TAB PEG DAILY GI (Reported) Polyethylene Glycol 3350 17 GRAM POWD.PACK 1 PAC PEG DAILY GI (Reported) Thiamine HCl (B-1) 100 MG TABLET 1 TAB PEG DAILY SUPPLEMENT (Reported) Vitamin B Complex (Super B-50 Complex Plus) 1 EACH TABLET 1 TAB PEG DAILY SUPPLEMENT (Reported) Triage Note: 47YO FEMALE TO TRIAGE W/FAMILY WHO REPORT PT'S FEEDING TUBE CAME OUT THIS AM AFTER RECIEVING HER 0400FEEDING. Triage Nurses Notes Reviewed? yes Onset: Abrupt Duration: hour(s): Timing: single episode today Injury Environment: home Severity: mild Modifying Factors: Improves With: rest. Associated Symptoms: "Her feeding tube fell out." HPI: 47 yo woman w/ trach and PEG tube, presents after her PEG tube fell out. Her ex- notes, "The string from her 02 sat monitor got stuck on the g- tube... and it just fell out...." He notes that she is otherwise well, but asks for an albuterol neb since she is due for her regular dose. She is otherwise well. Past History Travel History Traveled to [place] past 21 day No Medical History Any Pertinent Medical History? 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 Hx Contributory? No Review of Systems Review of Systems Constitutional: Reports: no symptoms. EENTM: Reports: no symptoms. Respiratory: Reports: no symptoms. Cardiovascular: Reports: no symptoms. GI: Reports: no symptoms. Genitourinary: Reports: no symptoms. Musculoskeletal: Reports: no symptoms. Skin: Reports: no symptoms. Neurological/Psychological: Reports: no symptoms. Hematologic/Endocrine: Reports: no symptoms. Immunologic/Allergic: Reports: no symptoms. All Other Systems: Reviewed and Negative Physical Exam Physical Exam General Appearance: well developed/nourished, no apparent distress Head: atraumatic, normal appearance Eyes: Bilateral: normal appearance. Ears, Nose, Throat: normal pharynx, normal ENT inspection Neck: tracheostomy in place Respiratory: normal breath sounds, chest non-tender, no respiratory distress Cardiovascular: regular rate/rhythm Gastrointestinal: normal bowel sounds, soft, non-tender, g-tube site with small amount of moist blood at ostomy, no sign of infection. Back: normal inspection Extremities: normal inspection Neurologic/Psych: pt at baseline Core Measures ACS in differential dx? No CVA/TIA Diagnosis: No Sepsis Present: No Sepsis Focused Exam Completed? No Progress Differential Diagnoses I considered the following diagnoses in my evaluation of the patient: feeding tube dysfunction vs other. Plan of Care: see below Initial ED EKG: none Departure Departure Disposition: HOME OR SELF CARE Condition: Stable Clinical Impression Primary Impression: Encounter for feeding tube placement Secondary Impressions: Complication of feeding tube Referrals: Wilbert KING,Pardeep Allison (PCP/Family) Departure Forms: Customer Survey General Discharge Information Comments 03/22/17, 6:45am... feeding tube replaced with difficulty... mild bleeding with multiple attempts... bleeding self resolved. Critical Care Note Critical Care Note Critical Care Time: non-applicable
[2017-03-22 05:23] VITALS: BP 155/82
== END 2017-03-22 06:38 ==
LOC: ERH 05:02
DX: Z43.1 Encounter for attention to gastrostomy (principal)
CPT/HCPCS: 1263

== ENCOUNTER 2017-04-06 06:24 | Emergency (ER) | payer OTHER, MEDICARE ==
[~2017-04-06] VITALS: Ht 154.9 cm; Wt 88.0 kg
--- NOTE | 2017-04-06 06:57 | ED DYSPNEA/ASTHMA COMPLAINT ---
History of Present Illness General Chief Complaint: General Adult Stated Complaint: PER FAMILY "TRACH KEEPS GETTING CLOGGED" Source: patient, family, old records Exam Limitations: no limitations Vital Signs & Intake/Output Vital Signs & Intake/Output Vital Signs Date Time Temp Pulse Resp B/P B/P Pulse O2 O2 Flow FiO2 Mean Ox Delivery Rate 04/06 0644 97.2 68 20 121/72 92 Trach Mask 4.0L Allergies Coded Allergies: No Known Allergies (09/28/16) Reconcile Medications Albuterol Sulfate 0.63 MG/3 ML VIAL.NEB 1 Vial INH/NURIS QAM RESPIRATORY ( Reported) Amoxicillin/Potassium Clav (Augmentin 875-125 Tablet) 875 MG-125 MG TABLET 1 TAB PO BID aspiration Aspirin (Ecotrin*) 81 MG TABLET.DR 1 TAB PEG DAILY HEART/BLOOD (Reported) Atorvastatin Calcium (Lipitor) 40 MG TABLET 1 TAB PEG DAILY CHOLESTEROL ( Reported) Budesonide/Formoterol Fumarate (Symbicort 160-4.5 Mcg Inhaler) 160 MCG-4.5 MCG/ ACTUATION HFA.AER.AD 2 PUF INH BID RESPIRATORY (Reported) Cholecalciferol (Vitamin D3) (Vitamin D) 2,000 UNIT CAPSULE 1 CAP PEG DAILY SUPPLEMENT (Reported) Cyanocobalamin (Vitamin B-12) 1,000 MCG TABLET 1 TAB PEG DAILY SUPPLEMENT ( Reported) Lactose-Reduced Food (Ensure Plus) 0.05 GRAM-1.5 KCAL/ML LIQUID 300 ML PEG 4 TIMES/DAY SUPPLEMENT (Reported) Metoclopramide HCl (Reglan) 10 MG TABLET 1 TAB PEG TIDAC GI (Reported) 30 minutes before meals and bedtime Pantoprazole Sodium 40 MG TABLET. 1 TAB PEG DAILY GI (Reported) Polyethylene Glycol 3350 17 GRAM POWD.PACK 1 PAC PEG DAILY GI (Reported) Thiamine HCl (B-1) 100 MG TABLET 1 TAB PEG DAILY SUPPLEMENT (Reported) Vitamin B Complex (Super B-50 Complex Plus) 1 EACH TABLET 1 TAB PEG DAILY SUPPLEMENT (Reported) Triage Note: PT TO TRIAGE WITH HER FRIEND, PT HAS TRACH AND O2 DEPENDENT ON 4L, COMPLAINS THAT THE LAST 5 DAYS PT HAS BEEN COMPLAINING THAT SHE IS SOB AND SPOUSE STATES THAT WHEN HE SUCTIONS HER ONLY CLEAR SPUTUM COMES OUT. O2 SAT 92 % AT TRIAGE ON 4L VIA NC . NO ACUTE DISTRESS NOTED Triage Nurses Notes Reviewed? yes HPI: Patient brought in for evaluation of increased secretions, no fever, secretions are clear. Patient also states that her stoma was hurting. (Renetta KING,Jeremiah Holt) Past History Travel History Traveled to [place] past 21 day No Medical History Any Pertinent Medical History? 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 Hx Contributory? No (Renetta KING,Jeremiah Holt) Review of Systems Review of Systems Constitutional: Reports: no symptoms. EENTM: Reports: see HPI. Respiratory: Reports: see HPI, cough. Neurological/Psychological: Reports: no symptoms. Immunologic/Allergic: Reports: no symptoms. (Renetta KING,Jeremiah Holt) Physical Exam Physical Exam General Appearance: well developed/nourished, alert, awake Eyes: Bilateral: PERRL, EOMI. Neck: normal inspection, supple, full range of motion, STOMA: NO SIGNS OF INFECTION Respiratory: normal breath sounds, chest non-tender, no respiratory distress, lungs clear Neurologic/Psych: awake, alert, oriented x 3 Core Measures ACS in differential dx? No CVA/TIA Diagnosis No Sepsis Present: No Sepsis Focused Exam Completed? No (Jeremiah Jackson MD) Progress Differential Diagnosis: bronchitis, pneumonia Plan of Care: Current Medications Sig/Bulmaro Start time Last Medication Dose Stop Time Status Admin Diphenhydramine HCl 12.5 MG ONCE ONE 04/06 0900 UNVr (Benadryl) 04/06 900 Azithromycin 500 MG ONCE ONE 04/06 0745 UNVr (Zithromax) 04/06 845 Prednisone 40 MG ONCE ONE 04/06 0745 UNVr 04/06 845 Diagnostic Imaging: Viewed by Me: Radiology Read. Discussed w/RAD: Radiology Read. Initial ED EKG: none Hand-Off Endorsed To: Porter Mckeon MD Endorsed Time: 0700 Pending: Xray (Jeremiah Jackson MD) Departure Departure Disposition: STILL A PATIENT Condition: Stable Clinical Impression Primary Impression: Bronchitis Referrals: Pardeep Atkins MD (PCP/Family) Departure Forms: Customer Survey General Discharge Information (Jeremiah Jackson MD) PA/MILL FEEDER Co-Sign Statement Statement: ED Attending supervision documentation- [X] I saw and evaluated the patient. I have also reviewed all the pertinent lab results and diagnostic results. I agree with the findings and the plan of care as documented in the PA's/MILL FEEDER's documentation. Patient presents for evaluation of increased secretions from tracheostomy. Physical examination reveals a well- appearing patient in no respiratory distress. Oropharynx is normal. [] I have reviewed the ED Record and agree with the PA's/MILL FEEDER's documentation. [] Additions or exceptions (if any) to the PAs/MILL FEEDER's note and plan are summarized below: [] (Porter Mckeon MD) Critical Care Note Critical Care Note Critical Care Time: non-applicable (Jeremiah Jackson MD)
--- NOTE | 2017-04-06 08:11 | RADIOLOGY REPORT ---
EXAMINATION: XR PORTABLE CHEST CLINICAL INFORMATION: Increased secretions. Pneumonia. COMPARISON: 01/14/2017 TECHNIQUE: Portable frontal view of the chest was obtained. FINDINGS: Tracheostomy tube appears appropriate situated, terminating 2.4 cm from the toño. Lung volumes are low. Linear bibasilar opacities are most compatible with dependent atelectasis. No areas of consolidation identified. Cardiac silhouette appears unchanged from prior, though is largely obscured by the elevated diaphragm related to the low lung volumes. Prominence of the pulmonary vasculature is likely related to the low lung volumes as well. Osseous structures are unremarkable. IMPRESSION: Hyperexpanded lungs with bibasilar atelectasis, similar to prior
[2017-04-06 09:31] VITALS: BP 135/63
[2017-04-06] MEDS ORDERED: PREDNISONE20 M1 PO (09:32)
[2017-04-06] MEDS ORDERED: ZITHROMAX250 M2 PO (09:32)
== END 2017-04-06 09:58 ==
LOC: ERH 06:24
DX: J40 Bronchitis, not specified as acute or chronic (principal)
CPT/HCPCS: 71045

== ENCOUNTER 2017-11-13 17:51 | Emergency (ER) | payer OTHER, MEDICARE ==
[~2017-11-13 17:51] MED LIST changes: +ZITHROMAX250 M2 PO
--- NOTE | 2017-11-13 18:00 | ED GENERAL ADULT ---
History of Present Illness General Chief Complaint: Dyspnea (COPD, CHF, Other) Stated Complaint: BIBA FOR DIFF BREATHING Source: family Exam Limitations: clinical condition, poor historian, physical impairment Vital Signs & Intake/Output Vital Signs & Intake/Output Vital Signs Date Time Temp Pulse Resp B/P B/P Pulse O2 O2 Flow FiO2 Mean Ox Delivery Rate 11/13 2153 97.6 58 18 127/72 95 11/13 2140 97 Trach Mask 28% 11/13 1956 95 Trach Mask 28% 11/13 180 96 Trach Mask 4.0L 11/13 1759 97.8 58 18 140/67 100 Allergies Coded Allergies: No Known Allergies (09/28/16) Triage Note: BIBA FROM HOME FOR SOB. PT WITH HISTORY OF MUSCULAR DYSTROPHY, PT HAS PERMANENT TRACE, PEG, IS ON VENTILATOR AT HS. TODAY PT AND FAMILY NOTED THAT PT WAS MORE SOB WITH EXERTION, SLIGHT WHEEZES HEARD BY EMS. BROUGHT TO ED FOR EVAL-PT ARRIVED AWAKE AND ALERT. NEB TX IN PROGRESS UPON ARRIVAL. PT DENIES PAIN OR CHEST PAIN. STATES SHE FEELS SOME SOB Triage Nurses Notes Reviewed? yes Onset: Abrupt Duration: hour(s): Timing: recent history HPI: 11/13/17 8 PM 47-year-old female is brought into the emergency department by ambulance for difficulty breathing. She has a history of ischemic dystrophy and reactive airway disease. According to her caregiver, she became short of breath and had increased secretions upon transferring today. No fever. No vomiting. Currently her oxygen saturation is 100%. She has bilateral rhonchi. She has a tracheostomy in place. (Porter Marti DO) Reconcile Medications Albuterol Sulfate 0.63 MG/3 ML VIAL.NEB 1 Vial INH/NURIS QAM RESPIRATORY ( Reported) Aspirin (Ecotrin*) 81 MG TABLET.DR 1 TAB PEG DAILY HEART/BLOOD (Reported) Atorvastatin Calcium (Lipitor) 40 MG TABLET 1 TAB PEG DAILY CHOLESTEROL ( Reported) Budesonide/Formoterol Fumarate (Symbicort 160-4.5 Mcg Inhaler) 160 MCG-4.5 MCG/ ACTUATION HFA.AER.AD 2 PUF INH BID RESPIRATORY (Reported) Cholecalciferol (Vitamin D3) (Vitamin D) 2,000 UNIT CAPSULE 1 CAP PEG DAILY SUPPLEMENT (Reported) Cyanocobalamin (Vitamin B-12) 1,000 MCG TABLET 1 TAB PEG DAILY SUPPLEMENT ( Reported) Lactose-Reduced Food (Ensure Plus) 0.05 GRAM-1.5 KCAL/ML LIQUID 300 ML PEG 4 TIMES/DAY SUPPLEMENT (Reported) Metoclopramide HCl (Reglan) 10 MG TABLET 1 TAB PEG TIDAC GI (Reported) 30 minutes before meals and bedtime Pantoprazole Sodium 40 MG TABLET.DR 1 TAB PEG DAILY GI (Reported) Polyethylene Glycol 3350 17 GRAM POWD.PACK 1 PAC PEG DAILY GI (Reported) Thiamine HCl (B-1) 100 MG TABLET 1 TAB PEG DAILY SUPPLEMENT (Reported) Vitamin B Complex (Super B-50 Complex Plus) 1 EACH TABLET 1 TAB PEG DAILY SUPPLEMENT (Reported) (Linda KING,Porter Decker) Past History Travel History Traveled to [place] past 21 day No Medical History Any Pertinent Medical History? 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 Hx Contributory? No (Porter Marti DO) Review of Systems Review of Systems Constitutional: Denies: fever. EENTM: Denies: visual changes. Respiratory: Reports: cough. Cardiovascular: Denies: chest pain. GI: Denies: abdominal pain. Genitourinary: Reports: no symptoms. Musculoskeletal: Reports: see HPI. Skin: Reports: no symptoms. Neurological/Psychological: Reports: no symptoms. Hematologic/Endocrine: Reports: no symptoms. Immunologic/Allergic: Reports: no symptoms. (Porter Marti DO) Physical Exam Physical Exam General Appearance: well developed/nourished Head: atraumatic Eyes: Bilateral: normal appearance, PERRL, EOMI. Ears, Nose, Throat: normal pharynx, normal ENT inspection Neck: normal inspection, TRACHESOTOMY Respiratory: rhonchi Cardiovascular: regular rate/rhythm Peripheral Pulses: 4+ radial (R), 4+ radial (L) Gastrointestinal: soft, non-tender, PEG TUBE Back: normal range of motion Extremities: normal inspection Neurologic/Psych: awake, alert, oriented x 3 Skin: intact, normal color, warm/dry Core Measures ACS in differential dx? No CVA/TIA Diagnosis: No Sepsis Present: No Sepsis Focused Exam Completed? No (Porter Marti DO) Progress Differential Diagnoses I considered the following diagnoses in my evaluation of the patient: [ I considered pneumonia, aspiration pneumonia, reactive airway disease, bronchitis, tracheitis] Plan of Care: Orders Procedure Date/time Status RT ED ORDERS 11/13 1937 Active COMPREHENSIVE METABOLIC PANEL 11/13 1937 Complete CBC WITHOUT DIFFERENTIAL 11/13 1937 Complete EKG 11/13 1937 Active Current Medications Sig/Bulmaro Start time Last Medication Dose Stop Time Status Admin Albuterol Sulfate 2 PUF Q4 11/13 2200 CAN (Ventolin) Laboratory Tests 11/13/172037: Anion Gap 4 L, Estimated GFR > 60, BUN/Creatinine Ratio 32.5 H, Glucose 99, Calcium 9.6, Total Bilirubin 0.3, AST 29, ALT 27, Alkaline Phosphatase 152 H, Total Protein 6.6, Albumin 3.6, Globulin 3.0, Albumin/Globulin Ratio 1.2, CBC w Diff NO MAN DIFF REQ, RBC 3.61 L, MCV 94.7, MCH 31.0, MCHC 32.7 L, RDW 13.8, MPV 9.3, Gran % 63.7, Lymphocytes % 25.0, Monocytes % 9.5 H, Eosinophils % 1.5, Basophils % 0.3, Absolute Granulocytes 5.3, Absolute Lymphocytes 2.1, Absolute Monocytes 0.8 H, Absolute Eosinophils 0.1, Absolute Basophils 0 Initial ED EKG: none (Porter Marti DO) Differential Diagnoses I considered the following diagnoses in my evaluation of the patient: CXR Impression: PATIENT: TANGELA BLOUNT PRESENT AGE: 47 PATIENT ACCOUNT NO: [id number] : 69 LOCATION: [facility] ORDERING PHYSICIAN: Porter Marti DO SERVICE DATE: 11/13/17-1937 EXAM TYPE: RAD - XRY-PORTABLE CHEST XRAY EXAMINATION: XR PORTABLE CHEST CLINICAL INFORMATION: Shortness of breath COMPARISON: March 2017 TECHNIQUE: Portable frontal view of the chest was obtained. FINDINGS: There is infiltrates at lung bases bilaterally probably unchanged. Exam limited, diminished lung volume. Tracheostomy tube remain in place. There is no pneumothorax. Blunting of costophrenic angles suggesting possible small effusion. IMPRESSION: Bibasal infiltrates and probably small effusions as described above probably unchanged. DICTATED BY: Kenneth Johnson MD DATE/TIME DICTATED:11/13/172056 HEAD HOST/HOSTESS:ROGER DATE/TIME TRANSCRIBED:11/13/172056 CONFIDENTIAL, DO NOT COPY WITHOUT APPROPRIATE AUTHORIZATION. <Electronically signed in Other Vendor System> SIGNED BY: Elizabeth KING,Kenneth 11/13/17 [id number] Comments: 11/13/2017 11:05:04 PM I have updated Tangela and her ex-, with whom she stays, on test results. Her ex- states that she appears normal at this point and feels comfortable taking her home given the unremarkable evaluation. I suspect the patient may have suffered from a transient mucus plugging. (Linda KING,Porter Decker) Departure Departure Condition: Stable Referrals: Wilbert KING,Pardeep Allison (PCP/Family) Departure Forms: Customer Survey General Discharge Information (Porter Marti DO) Departure Disposition: HOME OR SELF CARE Clinical Impression Primary Impression: Mucus plugging of bronchi Additional Instructions: Follow-up with your primary care physician on Wednesday for reevaluation. Return if any concerns or sudden worsening. Please note that there might be incidental findings in your evaluation that are unrelated to the current emergency department visit. Please notify your primary care doctor about this emergency department visit in order to obtain and review all of the testing performed so that these incidental findings can be monitored as needed. If you had an x-ray performed, please understand that some fractures or other findings may not be seen on the initial set of x-rays. If your symptoms persist you might need a repeat set of x-rays to check for such a fracture. If you had a laceration evaluated, please understand that foreign bodies such as glass or wood may not be visible to the naked eye or on plain x-rays. If the wound becomes red, swollen, increasingly more painful or if there is any drainage from the wound, please have it reevaluated by a physician for the possibility of a retained foreign body. If you're unable to follow up as outlined in the discharge instructions please return to the emergency department. Thank you for choosing the [facility] Emergency Department for your care. It was a pleasure to serve you today. Porter Mckeon M.D. [facility] (Linda KING,Porter Decker) Critical Care Note Critical Care Note Critical Care Time: 30-74 min (Porter Marti DO)
[2017-11-13 20:45] LABS: ABSOLUTE BASOPHIL COUNT 0 /CUMM (0.0-0.2); ABSOLUTE EOSINOPHIL COUNT 0.1 /CUMM (0.0-0.7); ABSOLUTE GRANULOCYTE CT 5.3 /CUMM (1.4-6.5); ABSOLUTE LYMPH COUNT 2.1 /CUMM (1.2-3.4); ABSOLUTE MONOCYTE COUNT 0.8 /CUMM (0.10-0.60); BASOPHIL % 0.3 % (0.0-2.0); EOSINOPHIL % 1.5 % (0-5); GRANULOCYTE % 63.7 % (42.2-75.2); HEMATOCRIT 34.2 % (37-47); MEAN CORPUSCULAR HGB CONC 32.7 G/DL (33.0-37.0); MEAN CORPUSCULAR VOLUME 94.7 FL (81.0-99.0); MEAN PLATELET VOLUME 9.3 FL (7.4-10.4); PLATELET COUNT 185 /CUMM (130-400); RBC DISTRIBUTION WIDTH 13.8 % (11.5-14.5); RED BLOOD CELL CT 3.61 /CUMM (4.20-5.40); WHITE BLOOD CELL COUNT 8.3 /CUMM (4.8-10.8)
--- NOTE | 2017-11-13 21:03 | RADIOLOGY REPORT ---
EXAMINATION: XR PORTABLE CHEST CLINICAL INFORMATION: Shortness of breath COMPARISON: March 2017 TECHNIQUE: Portable frontal view of the chest was obtained. FINDINGS: There is infiltrates at lung bases bilaterally probably unchanged. Exam limited, diminished lung volume. Tracheostomy tube remain in place. There is no pneumothorax. Blunting of costophrenic angles suggesting possible small effusion. IMPRESSION: Bibasal infiltrates and probably small effusions as described above probably unchanged.
[2017-11-13 21:54] VITALS: BP 127/72
== END 2017-11-13 23:18 ==
LOC: ERH 17:51
PROVIDERS: Emergency Medicine
DX: T17.990A Other foreign object in respiratory tract, part unspecified in causing asphyxiation, initial encounter (principal)
CPT/HCPCS: 1263; 1342; 71045; 93005; 93010